=== PATIENT | female | born 1955 | race Caucasian/White ===

== ENCOUNTER 2019-10-14 22:46 | Emergency (ER) | payer MEDICARE, OTHER ==
[~2019-10-14] VITALS: Ht 157.5 cm; Wt 68.0 kg
== END 2019-10-15 02:06 | disposition home or self-care (01) ==
LOC: ER 22:46
DX: S42.352A Displaced comminuted fracture of shaft of humerus, left arm, initial encounter for closed fracture (principal); S32.019A Unspecified fracture of first lumbar vertebra, initial encounter for closed fracture; Z88.0 Allergy status to penicillin; W06.XXXA Fall from bed, initial encounter
CPT/HCPCS: 72100; 73030; J1170

== ENCOUNTER 2020-08-10 17:39 | Emergency (ER) | payer MEDICARE, OTHER ==
[~2020-08-10] VITALS: Ht 162.6 cm; Wt 63.5 kg
[2020-08-10 18:15] LABS: BASOPHILS ABSOLUTE AUTO 0.04 K/mm3 (0.00-0.23); BASOPHILS PERCENT AUTO 0 % (0-2); EOSINOPHILS ABSOLUTE AUTO 0.15 K/mm3 (0.00-0.68); EOSINOPHILS PERCENT AUTO 1 % (0-6); Hematocrit 39.3 % (33.0-51.0); Hemoglobin 12.4 g/dL (11.5-16.0); IMMATURE GRAN ABSOLUTE AUTO 0.06 K/mm3 (0.00-0.10); IMMATURE GRAN PERCENT AUTO 0 % (0-1); LYMPHOCYTES ABSOLUTE AUTO 1.44 K/mm3 (0.84-5.20); LYMPHOCYTES PERCENT AUTO 10 % (21-46); MONOCYTES ABSOLUTE AUTO 0.84 K/mm3 (0.16-1.47); MONOCYTES PERCENT AUTO 6 % (4-13); Mean Corpuscular HGB 29.7 pg (26.0-34.0); Mean Corpuscular HGB Conc 31.6 g/dL (31.5-36.5); Mean Corpuscular Volume 94 fL (80-100); NEUTROPHILS ABSOLUTE AUTO 11.34 K/mm3 (1.96-9.15); NEUTROPHILS PERCENT AUTO 82 % (41-73); Platelet Count 273 K/mm3 (150-400); RDW Coefficient Variation 12.3 % (11.7-14.2); RDW Standard Deviation 42.7 fL (35.1-46.3); Red Blood Cell Count 4.18 M/mm3 (3.80-5.20); White Blood Cell Count 13.87 K/mm3 (4.00-11.30)
[2020-08-10 18:53] LABS: Albumin, Blood 2.6 g/dL (3.4-5.0); Albumin/Globulin Ratio 0.5 (0.8-1.8); Bilirubin, Total 3.1 mg/dL (0.1-1.0); Bun/Creatinine Ratio 19.6 (12.0-20.0); Calcium, Blood 9.1 mg/dL (8.5-10.1); Creatinine, Blood 1.07 mg/dL (0.40-1.00); Globulin, Blood 5.1 g/dL (2.2-4.0); Potassium, Blood 3.7 mmol/L (3.5-5.5); Total Protein, Blood 7.7 g/dL (6.4-8.2)
[2020-08-10] MEDS ORDERED: ESZO3 PO (19:47)
[2020-08-10] MEDS ORDERED: PREG150 PO (19:47)
[2020-08-10] MEDS ORDERED: CITA20 PO (19:47)
[2020-08-10] MEDS ORDERED: DULO30 PO (19:47)
[2020-08-10] MEDS ORDERED: AMLO5 PO (19:47)
[2020-08-10] MEDS ORDERED: TIZA4 PO (19:48)
[2020-08-10] MEDS ORDERED: LINZESS145 MCG PO (19:48)
[2020-08-10] MEDS ORDERED: OXYC10TA19 PO (19:50)
[2020-08-10] MEDS ORDERED: BUPRENORPHINE1 EAC6 TOP (19:53)
[2020-08-10 21:50] LABS: Source, Urine Clean Catch
[2020-08-10 21:56] LABS: Blood, Urine Neg (Neg); Glucose Qualitative, Urine Neg (Neg); Ketones, Urine Neg (Neg); Leukocyte Esterase, Urine 1+ (Neg); Nitrite, Urine Neg (Neg); Protein, Urine 2+ (Neg); Urobilinogen, Urine 3+ (Normal)
[2020-08-10 22:03] LABS: Appearance, Urine Hazy (Clear); Bilirubin, Urine 1+ (Neg); Color, Urine Yellow (P-Yellow); Red Blood Cells, Urine Not Seen /hpf (0-2); White Blood Cells, Urine 50-100 /hpf (0-5)
[2020-08-10 22:04] LABS: Bacteria Mod /hpf; Squamous Epithelial Cells Mod /hpf (Few)
== END 2020-08-10 23:30 | disposition short-term general hospital (02) ==
LOC: ER 17:39
PROVIDERS: Physician Assistant
DX: K80.10 Calculus of gallbladder with chronic cholecystitis without obstruction (principal); K85.10 Biliary acute pancreatitis without necrosis or infection; Z88.0 Allergy status to penicillin; Z79.899 Other long term (current) drug therapy
CPT/HCPCS: 36415; 74018; 74177; 76705; 80053; 81001; 83690; 85025; 87086; 96365-59; 96375; 99285-25; J0696; J0744; J1200; J2405; J3010; J7030; Q9967

== ENCOUNTER 2021-12-13 11:13 | Day surgery (SDC) | payer MEDICARE, OTHER ==
[~2021-12-13] VITALS: Ht 157.5 cm; Wt 145.0 kg
[~2021-12-13 11:13] MED LIST: AMLO5 PO; BUPR100ER PO; BUPRENORPHINE1 EAC6 TOP; CITA20 PO; CRUTCH2 XX; DULO30 PO; ESZO2 PO; ESZO3 PO; HYDR1TAB94 PO; LINZESS145 MCG PO; MYRBETRIQ25 MG PO; OXYC10TA19 PO; OXYMORPHONE HCL10 MG PO; PREG150 PO; PSEUDOEPHEDRINE30 M1 PO; Prinivil10 MG PO; TIZA4 PO; Zanaflex2 M1 PO
[2021-12-13] MEDS ORDERED: PREG25 (11:58)
[2021-12-13] MEDS ORDERED: Aspir 8181 MG (12:00)
== END 2021-12-13 15:10 | disposition home or self-care (01) ==
LOC: ORSCSDS 11:13
PROVIDERS: Podiatrist Foot & Ankle Surgery
PROC: 0QSH04Z Reposition Left Tibia with Internal Fixation Device, Open Approach (ICD-10-PCS; principal; 2021-12-13 12:30)
DX: S82.872A Displaced pilon fracture of left tibia, initial encounter for closed fracture (principal); I10 Essential (primary) hypertension; F41.8 Other specified anxiety disorders; Z87.891 Personal history of nicotine dependence; Z79.899 Other long term (current) drug therapy
CPT/HCPCS: A9270; C1713; J0171; J1100; J1885; J2250; J2405; J2704; J3010; J3370; J7050; J7120

== ENCOUNTER 2024-03-06 12:16 | Inpatient (IN) | payer MEDICARE, OTHER ==
[~2024-03-06] VITALS: Ht 167.6 cm; Wt 54.6 kg
[2024-03-06] VITALS (15 sets, daily range): BP systolic 141–193; BP diastolic 63–84
[~2024-03-06 12:16] MED LIST changes: +Aspir 8181 MG; +CITALOPRAM HBR10 MG; +KLOR-CON 1010 ME9 PO; +METO25ER PO; +PREG25 PO
[2024-03-06 12:57] LABS: BASOPHILS ABSOLUTE AUTO 0.05 K/mm3 (0.00-0.23); BASOPHILS PERCENT AUTO 1 % (0-2); EOSINOPHILS ABSOLUTE AUTO 0.06 K/mm3 (0.00-0.68); EOSINOPHILS PERCENT AUTO 1 % (0-6); Hematocrit 33.1 % (33.0-51.0); IMMATURE GRAN ABSOLUTE AUTO 0.02 K/mm3 (0.00-0.10); IMMATURE GRAN PERCENT AUTO 0 % (0-1); LYMPHOCYTES ABSOLUTE AUTO 1.34 K/mm3 (0.84-5.20); LYMPHOCYTES PERCENT AUTO 14 % (21-46); MONOCYTES ABSOLUTE AUTO 0.61 K/mm3 (0.16-1.47); MONOCYTES PERCENT AUTO 7 % (4-13); Mean Corpuscular HGB 29.6 pg (26.0-34.0); Mean Corpuscular HGB Conc 33.2 g/dL (31.5-36.5); Mean Corpuscular Volume 89 fL (80-100); Mean Platelet Volume 11.9 fL (9.1-12.4); NEUTROPHILS ABSOLUTE AUTO 7.33 K/mm3 (1.96-9.15); NEUTROPHILS PERCENT AUTO 78 % (41-73); Platelet Count 215 K/mm3 (150-400); RDW Coefficient Variation 13.1 % (11.7-14.2); RDW Standard Deviation 42.8 fL (35.1-46.3); Red Blood Cell Count 3.71 M/mm3 (3.80-5.20); White Blood Cell Count 9.41 K/mm3 (4.00-11.30)
[2024-03-06 13:22] LABS: Alanine Aminotransfer (ALT/SGP 41 U/L (12-78); Albumin, Blood 3.1 g/dL (3.4-5.0); Albumin/Globulin Ratio 0.8 (0.8-1.8); Alk Phos 73 U/L (50-136); Anion Gap 11 mmol/L (3-11); Aspartate Aminotrans (AST/SGOT 48 U/L (12-37); Bilirubin, Total 0.7 mg/dL (0.1-1.0); Blood Urea Nitrogen 18 mg/dL (8-24); Bun/Creatinine Ratio 19.4 (12.0-20.0); CO2, Blood 23 mmol/L (21-32); Calcium, Blood 8.5 mg/dL (8.5-10.1); Chloride, Blood 113 mmol/L (98-108); Creatinine, Blood 0.93 mg/dL (0.40-1.00); Ethanol (Alcohol), Blood, Med <3 mg/dL; Globulin, Blood 3.8 g/dL (2.2-4.0); Glomerular Filtration Rate 67 (60-); Glucose, Blood 128 mg/dL (70-99); Potassium, Blood 4.8 mmol/L (3.5-5.5); Sodium, Blood 142 mmol/L (136-145); Total Protein, Blood 6.9 g/dL (6.4-8.2)
[2024-03-06 14:09] LABS: Source, Urine Foley catheter
[2024-03-06 14:17] LABS: Appearance, Urine Clear (Clear); Bilirubin, Urine Neg (Neg); Blood, Urine Neg (Neg); Color, Urine Yellow (P-Yellow); Glucose Qualitative, Urine Neg (Neg); Ketones, Urine 3+ (Neg); Leukocyte Esterase, Urine Neg (Neg); Nitrite, Urine Neg (Neg); Protein, Urine 1+ (Neg); Urobilinogen, Urine NORM (Normal)
[2024-03-06 14:29] LABS: U Amphetamine Screen Not Detected; U Barbituate Screen Not Detected; U Benzodiazapine Screen Not Detected; U Buprenorphine Screen Not Detected; U Cannabinoids Screen Not Detected; U Cocaine Screen Not Detected; U Methadone Screen Not Detected; U Methamphetamine Screen Not Detected; U Opiates Screen Not Detected; U Oxycodone Screen Not Detected; U Phencyclidine Screen Not Detected
[2024-03-06] MEDS ORDERED: BUPRENORPHINE HC2 MG SL (14:36)
[2024-03-06] MEDS ORDERED: NiCARdipine HCL 50 MG in NS 250 ML IV SCH (14:40)
[2024-03-06] MEDS ORDERED: Ondansetron 4 MG TAB PO PRN (15:35)
[2024-03-06] MEDS ORDERED: Zolpidem Tartrate 5 MG Tab PO PRN (15:35)
[2024-03-06] MEDS ORDERED: Acetaminophen 650 MG Supp PR PRN (15:35)
[2024-03-06] MEDS ORDERED: Acetaminophen 325 MG TABLET PO PRN (15:40)
[2024-03-06] MEDS ORDERED: Magnesium Hydroxide Conc 10 ML UDC PO PRN (15:40)
[2024-03-06] MEDS ORDERED: Famotidine 20 MG Tab PO SCH (21:00)
[2024-03-06] MEDS ORDERED: buprenorphine HCL 2 MG TAB.SUBL SL SCH (21:00)
[2024-03-06] MEDS ORDERED: Pregabalin 75 MG Cap PO SCH (21:00)
[2024-03-06] MEDS ORDERED: Lactobacil 2-S.Thermo-Bifido 1 1 Cap PO SCH (21:00)
--- NOTE | 2024-03-06 22:00 | NUR ---
ASSUMED CARE PT ARRIVED FROM ED AT 1930. PT A/O TO SELF, ABLE TO FOLLOW SIMPLE COMMANDS. UNABLE TO STATE OR WHAT YEAR IT IS. MOVIE EXTRA EQUAL IN BILATERAL HANDS, ABLE TO MOVE BLE. PT'S DAUGHTER, MACHO, AT BEDSIDE. PUPILS EQUAL AND REACTIVE TO LIGHT. PT ON RA, O2 SATS > 90%. CARDIAC MONITORING REFLECTS NSR, HR 80s. NICARDIPINE GTT INFUSING, SEE FLOWSHEET. GOAL FOR SBP 170s-180s. PIV x2. PO TOLERATING PO FLUIDS FOR MEDICATION ADMIN. BED ALARM ON, BED IN LOWEST POSITION.
[2024-03-07] VITALS (45 sets, daily range): BP systolic 122–178; BP diastolic 46–100
[2024-03-07 03:45] LABS: BASOPHILS ABSOLUTE AUTO 0.07 K/mm3 (0.00-0.23); BASOPHILS PERCENT AUTO 1 % (0-2); EOSINOPHILS ABSOLUTE AUTO 0.17 K/mm3 (0.00-0.68); EOSINOPHILS PERCENT AUTO 2 % (0-6); Hematocrit 34.6 % (33.0-51.0); Hemoglobin 11.1 g/dL (11.5-16.0); IMMATURE GRAN ABSOLUTE AUTO 0.02 K/mm3 (0.00-0.10); IMMATURE GRAN PERCENT AUTO 0 % (0-1); LYMPHOCYTES ABSOLUTE AUTO 3.26 K/mm3 (0.84-5.20); LYMPHOCYTES PERCENT AUTO 33 % (21-46); MONOCYTES ABSOLUTE AUTO 0.94 K/mm3 (0.16-1.47); MONOCYTES PERCENT AUTO 10 % (4-13); Mean Corpuscular HGB Conc 32.1 g/dL (31.5-36.5); Mean Corpuscular Volume 90 fL (80-100); Mean Platelet Volume 11.8 fL (9.1-12.4); NEUTROPHILS ABSOLUTE AUTO 5.32 K/mm3 (1.96-9.15); NEUTROPHILS PERCENT AUTO 55 % (41-73); Platelet Count 301 K/mm3 (150-400); RDW Coefficient Variation 13.2 % (11.7-14.2); RDW Standard Deviation 43.5 fL (35.1-46.3); Red Blood Cell Count 3.83 M/mm3 (3.80-5.20); White Blood Cell Count 9.78 K/mm3 (4.00-11.30)
[2024-03-07 03:57] LABS: Albumin, Blood 3.4 g/dL (3.4-5.0); Albumin/Globulin Ratio 0.9 (0.8-1.8); Bilirubin, Total 0.5 mg/dL (0.1-1.0); Bun/Creatinine Ratio 16.7 (12.0-20.0); Calcium, Blood 8.9 mg/dL (8.5-10.1); Creatinine, Blood 1.14 mg/dL (0.40-1.00); Globulin, Blood 3.8 g/dL (2.2-4.0); Magnesium, Blood 1.7 mg/dL (1.6-2.4); Potassium, Blood 4.5 mmol/L (3.5-5.5); Total Protein, Blood 7.2 g/dL (6.4-8.2)
--- NOTE | 2024-03-07 05:15 | NUR ---
SHIFT SUMMARY PT'S MENTATION IMPROVED THROUGHOUT SHIFT AND IS NOW A/O X4. PT IS AT TIMES SLOW TO RESPOND BUT WILL ANSWER QUESTIONS CORRECTLY. PT STILL ABLE TO FOLLOW COMMANDS. ABLE TO STAND AND PIVOT TO BSC WITH 1 NURSE ASSIST. PT REMAINS ON RA, O2 SATS > 90%. CARDIAC MONITORING REFLECTS NSR, HR 60s. NICARDIPINE GTT ON SB, SEE FLOWSHEET. SBP 160s AT THIS TIME. PIV TO REX AND R HAND SL.
--- NOTE | 2024-03-07 07:58 | NUR ---
ASSUMED CARE BEDSIDE REPORT FROM DANIELA MARTE AT 0700. PT RESTING IN BED. A&OX 4. FOLLOWS COMMANDS. ABLE TO MAKE NEEDS KNOWN, OCCASIONALLY SLOW TO RESPOND BUT ANSWERS QUESTIONS APPROPRIATELY. STATES SHE IS FEELING MUCH BETTER. MAEW, TREE KILLER EQUAL. LUNGS CLEAR. SR, RATE 70'S. SBP 160-170'S. NICARDIPINE ON STANDBY, PO HTN MEDS GIVEN. ABD ROUND, SOFT, NON TENDER, BT X 4. TOLERATING PO WELL. CALL LIGHT IN REACH. WILL CONTINUE PLAN OF CARE.
[2024-03-07] MEDS ORDERED: Enoxaparin 40 MG/0.4 ML SYR SC SCH (09:00)
[2024-03-07] MEDS ORDERED: Metoprolol Succinate 25 MG TABCR PO SCH (09:00)
[2024-03-07] MEDS ORDERED: Lisinopril 20 MG Tab PO SCH (09:00)
[2024-03-07] MEDS ORDERED: LISI20 PO (14:59)
--- NOTE | 2024-03-07 18:37 | NUR ---
DISCHARGE D/C INSTRUCTIONS GIVEN AT 1530. QUESTIONS ANSWERED. PT TO MAKE APPT c PCP WITHIN ONE WEEK. IVS REMOVED AND DRESSINGS PLACED. PT WAITED IN ROOM FOR DAUGHTER TO SSIS ARCHITECT. OTFinn MCCARTY.
== END 2024-03-07 18:27 | disposition home or self-care (01) | DRG 305 ==
LOC: ER 12:16 → ICUE 17:10
PROVIDERS: Emergency Medicine; ADMIT Hospitalist
DX: I16.1 Hypertensive emergency (principal); I67.4 Hypertensive encephalopathy; I50.32 Chronic diastolic (congestive) heart failure; G89.29 Other chronic pain; I11.0 Hypertensive heart disease with heart failure; F32.9 Major depressive disorder, single episode, unspecified; R29.6 Repeated falls; I25.2 Old myocardial infarction; Z88.0 Allergy status to penicillin; Z88.1 Allergy status to other antibiotic agents; Z79.899 Other long term (current) drug therapy; Z79.82 Long term (current) use of aspirin; Z98.890 Other specified postprocedural states; Z90.49 Acquired absence of other specified parts of digestive tract
CPT/HCPCS: 36415; 70450; 70496; 70498; 71045; 80053; 83735; 85025; 93005; 93010; 96365-59; 96366-59; 99291-25; A9270; J1650; J7050; Q9967

== ENCOUNTER 2024-04-27 18:35 | Inpatient (IN) | payer MEDICARE, OTHER ==
[~2024-04-27] VITALS: Ht 157.5 cm; Wt 53.7 kg
[~2024-04-27 18:35] MED LIST changes: +BUPRENORPHINE HC2 MG SL; +LISI20 PO
[2024-04-27 18:57] LABS: BASOPHILS ABSOLUTE AUTO 0.07 K/mm3 (0.00-0.23); BASOPHILS PERCENT AUTO 1 % (0-2); EOSINOPHILS ABSOLUTE AUTO 0.52 K/mm3 (0.00-0.68); EOSINOPHILS PERCENT AUTO 4 % (0-6); Hematocrit 30.7 % (33.0-51.0); Hemoglobin 9.5 g/dL (11.5-16.0); IMMATURE GRAN ABSOLUTE AUTO 0.03 K/mm3 (0.00-0.10); IMMATURE GRAN PERCENT AUTO 0 % (0-1); LYMPHOCYTES ABSOLUTE AUTO 2.28 K/mm3 (0.84-5.20); LYMPHOCYTES PERCENT AUTO 18 % (21-46); MONOCYTES PERCENT AUTO 8 % (4-13); Mean Corpuscular HGB Conc 30.9 g/dL (31.5-36.5); Mean Corpuscular Volume 91 fL (80-100); Mean Platelet Volume 12.9 fL (9.1-12.4); NEUTROPHILS ABSOLUTE AUTO 8.75 K/mm3 (1.96-9.15); NEUTROPHILS PERCENT AUTO 69 % (41-73); Platelet Count 147 K/mm3 (150-400); RDW Coefficient Variation 15.1 % (11.7-14.2); RDW Standard Deviation 49.9 fL (35.1-46.3); Red Blood Cell Count 3.39 M/mm3 (3.80-5.20); White Blood Cell Count 12.65 K/mm3 (4.00-11.30)
[2024-04-27] MEDS ORDERED: Albuterol HFA200 ACT/6.7 GM INH INH ONE (19:35)
[2024-04-27 19:42] LABS: Albumin, Blood 3.1 g/dL (3.4-5.0); Albumin/Globulin Ratio 0.8 (0.8-1.8); Bilirubin, Total 0.4 mg/dL (0.1-1.0); Bun/Creatinine Ratio 18.1 (12.0-20.0); Creatinine, Blood 2.6 mg/dL (0.40-1.00); Globulin, Blood 3.7 g/dL (2.2-4.0); Potassium, Blood 6.1 mmol/L (3.5-5.5); Total Protein, Blood 6.8 g/dL (6.4-8.2)
[2024-04-27 19:42] LABS: Source, Urine Clean Catch
[2024-04-27 19:45] LABS: Appearance, Urine Hazy (Clear); Bilirubin, Urine Neg (Neg); Blood, Urine Neg (Neg); Color, Urine Yellow (P-Yellow); Glucose Qualitative, Urine Neg (Neg); Ketones, Urine Neg (Neg); Leukocyte Esterase, Urine 1+ (Neg); Nitrite, Urine Neg (Neg); Protein, Urine 1+ (Neg); Specific Gravity, Urine 1.015 (1.003-1.022); Urobilinogen, Urine NORM (Normal)
[2024-04-27] MEDS ORDERED: NS 1,000 ML IV SCH ×2 (19:45→21:20)
[2024-04-27 19:51] LABS: Influenza A, PCR NEGATIVE (NEGATIVE); Influenza B, PCR NEGATIVE (NEGATIVE); Resp Syncytial Virus, PCR NEGATIVE (NEGATIVE); SARS-Cov-2 (COVID-19) PCR, MMC NEGATIVE (NEGATIVE)
[2024-04-27 19:54] LABS: Red Blood Cells, Urine 0-2 /hpf (0-2); Squamous Epithelial Cells Few /hpf (Few)
[2024-04-27 19:55] LABS: Bacteria Mod /hpf
[2024-04-27] MEDS ORDERED: Dextrose 50% 50 ML Vial IV ONE (21:20)
[2024-04-27] MEDS ORDERED: Celexa20 MG PO (21:39)
[2024-04-27] MEDS ORDERED: METO50ER PO (21:40)
[2024-04-27] MEDS ORDERED: Insulin Regular 100 Unit/ML 1ML Dose IV ONE (21:40)
[2024-04-27] MEDS ORDERED: POTCHL20ER PO (21:41)
[2024-04-27 21:43] LABS: Base Excess Venous -10.9 mmol/L; Bicarbonate Venous 16.5 mmol/L (24.0-30.0); PCO2 Venous 33.8 mmHg (38-42); pH Blood Venous 7.28 (7.34-7.37)
[2024-04-27] MEDS ORDERED: Insulin Glargine-Yfgn 100 Unit/mL 3 ML SYR SC ONE (22:00)
[2024-04-27 22:44] VITALS: BP 131/106
[2024-04-28] VITALS (11 sets, daily range): BP systolic 159–215; BP diastolic 60–122
[2024-04-28] MEDS ORDERED: HydrALAZINE HCl 20 MG / ML 1ML Vial IV PRN ×2 (07:40→11:55)
[2024-04-28] MEDS ORDERED: Enoxaparin 30 MG/0.3 ML SYR SC SCH (09:00)
[2024-04-28 09:31] LABS: Hematocrit 36.2 % (33.0-51.0); Hemoglobin 11.3 g/dL (11.5-16.0); Mean Corpuscular HGB Conc 31.2 g/dL (31.5-36.5); Mean Corpuscular Volume 90 fL (80-100); Platelet Count 182 K/mm3 (150-400); RDW Coefficient Variation 14.8 % (11.7-14.2); RDW Standard Deviation 49.1 fL (35.1-46.3); Red Blood Cell Count 4.03 M/mm3 (3.80-5.20); White Blood Cell Count 17.93 K/mm3 (4.00-11.30)
[2024-04-28 09:52] LABS: Bun/Creatinine Ratio 17.5 (12.0-20.0); Calcium, Blood 9.1 mg/dL (8.5-10.1); Creatinine, Blood 2.17 mg/dL (0.40-1.00); Potassium, Blood 6.7 mmol/L (3.5-5.5)
[2024-04-28] MEDS ORDERED: Sodium Bicarb 8.4% 1 MEQ/ML 50 ML Vial IV ONE (10:20)
[2024-04-28] MEDS ORDERED: NS 1,000 ML IV SCH (10:20)
[2024-04-28] MEDS ORDERED: Furosemide 10 MG / ML 2ML Vial IV ONE (11:00)
[2024-04-28] MEDS ORDERED: HydrALAZINE HCl 20 MG / ML 1ML Vial IV ONE (11:30)
[2024-04-28] MEDS ORDERED: Ondansetron HCl 2 MG / ML 2ML Vial IV PRN (11:35)
[2024-04-28] MEDS ORDERED: CloNIDine HCL 0.1 MG Patch TOP SCH (12:00)
[2024-04-28 14:39] LABS: Bun/Creatinine Ratio 18.6 (12.0-20.0); Creatinine, Blood 2.2 mg/dL (0.40-1.00); Potassium, Blood 6.3 mmol/L (3.5-5.5)
[2024-04-28] MEDS ORDERED: LISINOPRIL-HCT1 EAC1 PO (15:31)
[2024-04-28] MEDS ORDERED: TIZA4 PO (15:31)
--- NOTE | 2024-04-28 17:23 | NUR ---
PATIENT REMAINS ALTERED, ORIENTED TO NONE. B/P ELEVATED THROUGHOUT THE SHIFT. IV HYDRALAZINE GIVEN X3 AND CLONIDINE PATCH PLACED. PATIENT AWAKE THROUGHOUT THE DAY, BUT DROWSY. CURRENTLY NPO DUE TO ASPIRATION RISK. POTASSIUM CRITICALLY HIGH, LAST DRAW WAS 6.3, DR PIERRE NOTIFIED. SR IN THE 90'S ON TELEMETRY. INCONTINENT OF BOWEL/BLADDER, PUREWICK IN PLACE. NS INFUSING AT 100ML/HR. PER REPORT BUTTOCKS IS EXCORIATED, FOAM DRESSING IN PLACE AND REMAINS C/D/I. TURNED Q2 HOURS THIS SHIFT, PATIENT UNABLE TO FOLLOW COMMANDS.
[2024-04-28 20:00] LABS: Bun/Creatinine Ratio 17.9 (12.0-20.0); Creatinine, Blood 2.29 mg/dL (0.40-1.00)
[2024-04-28] MEDS ORDERED: FentaNYL Citrate 50 MCG/ML 2 ML Injection IV PRN (22:25)
--- NOTE | 2024-04-28 23:44 | NUR ---
2157 PT BLOOD PRESSURE 208/86. PT GIVEN 20 MG HYDRALAZINE PER EMAR. BLOOD PRESSURE RECHECKED AT 2244 AND RESULT WAS 203/71. PT GIVEN PAIN MEDICATIONS PER EMAR AT 225. AT 2320 PT BLOOD PRESSURE 159/65.
[2024-04-29] VITALS (7 sets, daily range): BP systolic 144–202; BP diastolic 63–105
--- NOTE | 2024-04-29 04:17 | NUR ---
SHIFT SUMMARY PT MEDICATED PER EMAR FOR BLOOD PRESSURE AND PAIN DURING THIS SHIFT. PT BED IN LOW POSITION AND CALL LIGHT WITHIN REACH. PT DAUGHTER DID COME IN TO VISIT LAST NIGHT AND STS WILL BE BACK THIS AM BEFORE SHE GOES TO WORK.
[2024-04-29] MEDS ORDERED: FentaNYL 12 MCG/HR Patch TOP SCH (11:05)
[2024-04-29] MEDS ORDERED: Lidocaine 4% 1 Patch TOP SCH (11:39)
[2024-04-29 12:09] LABS: Source, Urine Foley catheter
[2024-04-29 12:14] LABS: Appearance, Urine Clear (Clear); Bilirubin, Urine Neg (Neg); Blood, Urine Neg (Neg); Color, Urine Yellow (P-Yellow); Glucose Qualitative, Urine Neg (Neg); Ketones, Urine Neg (Neg); Leukocyte Esterase, Urine Neg (Neg); Nitrite, Urine Neg (Neg); Protein, Urine Neg (Neg); Specific Gravity, Urine 1.015 (1.003-1.022); Urobilinogen, Urine NORM (Normal)
[2024-04-29] MEDS ORDERED: FentaNYL Citrate 50 MCG/ML 2 ML Injection IV SCH (16:00)
--- NOTE | 2024-04-29 18:36 | NUR ---
SHIFT SUMMARY PT REMAINS ALTERED MENTAL STATUS, A/OX0. BP MAINTAINS 140-170'S SYSTOLIC T/O THIS SHIFT. FENTANYL GIVEN ONCE THIS AM FOR PAIN. RENAL ULTRASOUND REVIEVED 1300 ML OF URINE IN THE BLADDER. PURWICK REMOVED AND DELUNA CATHETER PLACED. DELUNA DRAINING CLEAR, YELLOW URINE. PT REMAINS NPO D/T ALTERED MENTAL STATUS AND NS RUNNNIG CONTINUOUSLY @ 100 ML/HR. STAGE 2 PRESSURE SORE LOCATED ON THE COCCYX, DRESSING CHANGED THIS AM, SEE PICTURE IN RECORDS.
[2024-04-30] VITALS (10 sets, daily range): BP systolic 147–208; BP diastolic 67–102
[2024-04-30] MEDS ORDERED: HYDROmorphone HCl/Pf 1MG SYR IV PRN (04:40)
--- NOTE | 2024-04-30 05:09 | NUR ---
PT AM BP SYSTOLIC 208. 2O MG IV HYDRALAZINE GIVEN, WHEN RECHECKED AFTER REPOSITIONING AND CATH CARE, BP 197 SYSTOLIC HR 128 RR 28 VIEW SCORE 4. HOSPITALIST NOTIFIED OF PT TETHERED CORD SYNDROME AND CHRONIC BACK PAIN AND TOLD PT GETTING FENTANYL 25 MCG SCHEDULED Q8H. HOSPITALIST GAVE ORDER TO DC FENTANYL AND START PT ON IV DILAUDID 0.5-1 MG Q4P TO HELP RELIEVE PAIN AND TO LOWER BP, RR, HR. 1 MG GIVEN AND WILL RECHECK VS AFTER 30 MINUTES.
--- NOTE | 2024-04-30 05:45 | NUR ---
SHIFT SUMMARY NOC PT A/O X TO FAMILY. PLEASANT AND COOPERATIVE WITH CARE. BP ELEVATED IN AM 208/83 20 IV HYDRALAZINE GIVEN. ON RECHECK AFTER REPOSITIONING AND CHANGING PT BP 197/83 HR 128 RR 28. HOSPITALIST NOTIFIED OF PT PAIN HX AND FENTANYL D/C AND NEW ORDER FOR IV DILAUDID 0.5-1MG Q4H GIVEN. PT GIVEN 1MG DOSE, VS RECHECKED BP 154/74 HR 106 RR 24. ON TELE SINUS RHYTHM @ [address] FOR ACUTE RETENTION PATENT AND DRAINING TO GRAVITY. PT HAS BEEN NON VERBAL FOR ENTIRETY OF SHIFT. DAUGHTER CAME TO VISIT AND REPORTS PT HAS HAD MULTIPLE EPISODES OF AMS IN THE PAST. INFUSION OF NS @ 100 ML/HR RUNNING DUE TO NPO STATUS. PT CURRENTLY RESTING WITH BED ALARM ON, BED IN LOWEST POSITION, AND CALL LIGHT WITHIN REACH. PT POSTASSIUM 5.6, AWAITING AM LABS FOR IMPROVEMENT.
[2024-04-30 05:51] LABS: Hematocrit 30.3 % (33.0-51.0); Hemoglobin 9.5 g/dL (11.5-16.0); Mean Corpuscular HGB 28.3 pg (26.0-34.0); Mean Corpuscular HGB Conc 31.4 g/dL (31.5-36.5); Mean Corpuscular Volume 90 fL (80-100); Platelet Count 176 K/mm3 (150-400); RDW Coefficient Variation 16.4 % (11.7-14.2); RDW Standard Deviation 54.4 fL (35.1-46.3); Red Blood Cell Count 3.36 M/mm3 (3.80-5.20); White Blood Cell Count 12.95 K/mm3 (4.00-11.30)
[2024-04-30 06:31] LABS: Albumin, Blood 3.1 g/dL (3.4-5.0); Anion Gap 18 mmol/L (3-11); Blood Urea Nitrogen 39 mg/dL (8-24); Bun/Creatinine Ratio 22.9 (12.0-20.0); CO2, Blood 14 mmol/L (21-32); Calcium, Blood 9.1 mg/dL (8.5-10.1); Chloride, Blood 118 mmol/L (98-108); Glomerular Filtration Rate 32 (60-); Glucose, Blood 149 mg/dL (70-99); Magnesium, Blood 1.8 mg/dL (1.6-2.4); Phosphorus, Blood 4.4 mg/dL (2.5-4.9); Sodium, Blood 145 mmol/L (136-145)
--- NOTE | 2024-04-30 09:14 | NUR ---
0722 BP 185/86. MEDICATED WITH 20 MG IV PRN HYDRALAZINE PER OCT. BP DECREASED TO 147/67 AFTER RECHECK.
--- NOTE | 2024-04-30 16:59 | NUR ---
DOBHOFF PLACED TO 45 CM IN THE RIGHT NARE. AWAITING X-RAY TO CONFIRM PLACEMENT IN ORDER TO START FEEDINGS.
--- NOTE | 2024-04-30 17:50 | NUR ---
DOBHOFF ADVANCED 10 CM TO MEET PLACEMENT, TO 55 CM TOTAL. JEVITY 1.2 STARTED AT 10 ML/HR. SET TO FLUSH 30 ML EVERY 4 HOURS.
--- NOTE | 2024-04-30 17:54 | NUR ---
SHIFT SUMMARY PT ALERT AND ORIENTED TO PERSON. PT IS PLEASANT AND COOPERATIVE WITH CARE. PRN HYDRALAZINE GIVEN TWICE THROUGHOUT THE SHIFT. SPEECH THERAPY EVALUATED THE PT AND THE PT REMAINS NPO. DOBHOFF PLACED AT 55 CM IN ORDER TO START FEEDINGS. JEVITY 1.2 STARTED AT 10 ML/HR AND SET TO FLUSH 30 ML EVERY 4 HOURS. ON TELE RUNNING SINUS RHYTHM/SINUS TACHYCARDIA. DELUNA IN PLACE FOR ACUTE URINARY RETENTION, DRAINING TO GRAVITY, YELLOW URINE. PT CURRENTLY RESTING WITH BED ALARM ON AND THE BED IN THE LOWEST POSITION.
[2024-04-30] MEDS ORDERED: dilTIAZem HCL 30 MG TAB PT SCH (18:00)
[2024-04-30] MEDS ORDERED: Sodium Bicarbonate 650 MG Tab PT SCH (21:00)
[2024-04-30] MEDS ORDERED: Magnesium Sulf 2 GM/Water 50ML 50 ML IV ONE ×2 (22:55→23:00)
--- NOTE | 2024-04-30 22:56 | NUR ---
TELE CALLED 2226 16 BT RUN OF TORSADES, THEN BACK INTO THE PREVIOUS NSR. PT APPEARS ASYMPTOMATIC. SPOKE WITH DR SANDRA ORDERED MAG SULFATE. WILL LET PRIMARY RN KNOW
--- NOTE | 2024-04-30 23:01 | NUR ---
V TACH/ TORSADES WAS MADE AWARE THAT THIS PT LOOKED TO HAVE A RUN OF TORSADES; I SPOKE WITH DR. BAL WHO WANTED STAT LABS AND MAG 2 GM TO BE GIVEN. RN TAKING CARE OF PT WAS NOTIFIED.
[2024-04-30] MEDS ORDERED: Sodium Bicarb 8.4% 1 MEQ/ML 50 ML Vial IV STA (23:02)
[2024-04-30 23:45] LABS: Albumin, Blood 2.9 g/dL (3.4-5.0); Albumin/Globulin Ratio 0.7 (0.8-1.8); Bilirubin, Total 0.9 mg/dL (0.1-1.0); Bun/Creatinine Ratio 27.5 (12.0-20.0); Calcium, Blood 9.4 mg/dL (8.5-10.1); Creatinine, Blood 1.49 mg/dL (0.40-1.00); Globulin, Blood 4.2 g/dL (2.2-4.0); Magnesium, Blood 1.9 mg/dL (1.6-2.4); Potassium, Blood 4.4 mmol/L (3.5-5.5); Total Protein, Blood 7.1 g/dL (6.4-8.2)
[2024-05-01] VITALS (12 sets, daily range): BP systolic 134–193; BP diastolic 73–98
[2024-05-01] MEDS ORDERED: Labetalol HCL 5 MG/ML 4ML Injection (Single Dose) IV PRN (03:45)
[2024-05-01 06:09] LABS: Hematocrit 28.9 % (33.0-51.0); Hemoglobin 9.2 g/dL (11.5-16.0); Mean Corpuscular HGB Conc 31.8 g/dL (31.5-36.5); Mean Corpuscular Volume 88 fL (80-100); Mean Platelet Volume 12.5 fL (9.1-12.4); Platelet Count 183 K/mm3 (150-400); RDW Coefficient Variation 16.7 % (11.7-14.2); RDW Standard Deviation 54.1 fL (35.1-46.3); Red Blood Cell Count 3.28 M/mm3 (3.80-5.20); White Blood Cell Count 10.07 K/mm3 (4.00-11.30)
--- NOTE | 2024-05-01 06:27 | NUR ---
PT UNABLE TO COMMUNICATE NEEDS, WILL SOMETIMES RESPOND TO QUESTIONS WITH GRUNTS. PT HAD A 16 BEAT RUN OF TORSADES AT 1030PM, MD NOTIFIED - ORDERS PLACED AND FOLLOWED. PT HYPERTENSIVE, PRN HYDRALAZINE ADMINISTERED WITH MILD IMPROVEMENT. AROUND 3 AM PT WAS HYPERTENSIVE, TACHYPNEIC AND TACHYCARDIC >130 BPM, PRN PAIN MEDS AND HYDRALAZINE ADMINISTERED, MD NOTIFIED, LABETALOL ORDER ADDED AND ADMINISTERED WITH GREAT IMPROVEMENT TO VITALS - SEE CHART. PT REPOSITIONED THROUGHOUT SHIFT. SOFT WRIST RESTRAINTS CONTINUED D/T AMS AND DOBHOFF IN PLACE.
[2024-05-01 06:37] LABS: Albumin, Blood 2.8 g/dL (3.4-5.0); Anion Gap 10 mmol/L (3-11); Blood Urea Nitrogen 39 mg/dL (8-24); Bun/Creatinine Ratio 27.5 (12.0-20.0); CO2, Blood 22 mmol/L (21-32); Chloride, Blood 122 mmol/L (98-108); Creatinine, Blood 1.42 mg/dL (0.40-1.00); Glomerular Filtration Rate 40 (60-); Glucose, Blood 190 mg/dL (70-99); Magnesium, Blood 2.6 mg/dL (1.6-2.4); Phosphorus, Blood 3.1 mg/dL (2.5-4.9); Sodium, Blood 150 mmol/L (136-145)
[2024-05-01] MEDS ORDERED: Metoprolol Tartrate 25 MG Tab PT SCH ×2 (09:00→21:00)
--- NOTE | 2024-05-01 11:30 | NUR ---
PT'S DAUGHTER SILAS REMOVED PT'S [place] RING AND STATED SHE PUT IT IN HER PURSE TO TAKE HOME. SHE STATES THAT SHE NOTIFIED HER OTHER SISTER MACHO WHO AGREES TO HER TAKING THE [place] RING HOME.
[2024-05-01] MEDS ORDERED: HydrALAZINE HCl 20 MG / ML 1ML Vial IV PRN (12:25)
[2024-05-01] MEDS ORDERED: Citalopram Hydrobromide 10 MG TAB PT SCH (13:00)
[2024-05-01] MEDS ORDERED: Aspirin 81 MG Chew PT SCH (13:00)
[2024-05-01] MEDS ORDERED: Furosemide 10 MG / ML 2ML Vial IV ONE (14:00)
--- NOTE | 2024-05-01 16:35 | NUR ---
PER DR PIERRE, DOBHOFF NEEDED TO BE ADVANCED. PER IMAGING TIP WAS LOCATED AT THE GASTROESOPHAGEAL JUNCTION. THIS NURSE AND IHSAN SHARMA ADVANCED DOBHOFF TO THE MARKING OF 60 CM. NAGSOGASTRIC STATLOCK REPLACED. AWAITING X-RAY VERIFICATION AT THIS TIME.
[2024-05-01] MEDS ORDERED: Lactulose 20 GM/30 ML UDC PT SCH (17:00)
[2024-05-01] MEDS ORDERED: CefTRIAXone Sodium 1,000 MG in NS 100 ML IV SCH (17:00)
[2024-05-01] MEDS ORDERED: NS 250 ML IV PRN (17:35)
--- NOTE | 2024-05-01 17:59 | NUR ---
SHIFT SUMMARY: PATIENT IS NOVERBAL. RESPONDS WITH GRUNTS OCCASSIONALLY. ADVANCED NG TUBE TO 60 CM WITH SHARON MARTE PER DR. PIERRE. X-RAY COMPLETED, AWAITING PLACEMENT CONFIRMATION. TUBE FEEDING HELD UNTIL PLACEMENT CONFIRMED. PATIENT HAVING WORSENING HTN, TREATED PER EMAR. PATIENT GROANING AND WINCING WITH PAIN, TREATED WITH DILAUDID 1MG AT 1708. CALL FROM TELE AT 1811 WITH 5 BEAT RUN OF SVT, DR. PIERRE NOTIFIED. BED IN LOW POSITION AND CALL LIGHT WITHIN REACH. BED ALARM ON. PATIENT REPOSITIONED Q2H AND PRN. DELUNA PATENT AND DRAINING.
[2024-05-02] VITALS (8 sets, daily range): BP systolic 157–188; BP diastolic 74–97
[2024-05-02 05:51] LABS: Hematocrit 31.1 % (33.0-51.0); Hemoglobin 9.6 g/dL (11.5-16.0); Mean Corpuscular HGB 27.7 pg (26.0-34.0); Mean Corpuscular HGB Conc 30.9 g/dL (31.5-36.5); Mean Corpuscular Volume 90 fL (80-100); Mean Platelet Volume 12.2 fL (9.1-12.4); Platelet Count 202 K/mm3 (150-400); RDW Coefficient Variation 16.9 % (11.7-14.2); RDW Standard Deviation 55.4 fL (35.1-46.3); Red Blood Cell Count 3.47 M/mm3 (3.80-5.20); White Blood Cell Count 13.67 K/mm3 (4.00-11.30)
[2024-05-02 06:10] LABS: Albumin, Blood 2.7 g/dL (3.4-5.0); Anion Gap 9 mmol/L (3-11); Blood Urea Nitrogen 38 mg/dL (8-24); Bun/Creatinine Ratio 26.6 (12.0-20.0); CO2, Blood 25 mmol/L (21-32); Chloride, Blood 125 mmol/L (98-108); Creatinine, Blood 1.43 mg/dL (0.40-1.00); Glomerular Filtration Rate 40 (60-); Glucose, Blood 177 mg/dL (70-99); Magnesium, Blood 2.1 mg/dL (1.6-2.4); Phosphorus, Blood 2.6 mg/dL (2.5-4.9); Potassium, Blood 3.4 mmol/L (3.5-5.5); Sodium, Blood 156 mmol/L (136-145)
--- NOTE | 2024-05-02 06:10 | NUR ---
RENETTA PLACEMENT CONFIRMED, TUBE FEEDING RESUMED - RATE INCREASED TO GOAL RATE OF 40ML/HR DURING SHIFT, PT TOLERATING WITH NO SIGNS OF N/V. BOWEL CARE MED ADMINISTERED, PT HAD TWO LOOSE STOOLS. REPOSITIONED THROUGHOUT SHIFT. BLOOD PRESSURE ELEVATED REQUIRING PRN HYDRALAZINE, PAIN MANAGED WITH PRN PAIN MEDS. PT CONTINUES AMS, NOT ABLE TO MAKE NEEDS KNOWN.
[2024-05-02] MEDS ORDERED: Potassium Chloride 20 MEQ/15 ML UDC PT ONE (08:25)
[2024-05-02] MEDS ORDERED: Metoprolol Tartrate 50 MG Tab PT SCH (09:00)
[2024-05-02] MEDS ORDERED: Enoxaparin 40 MG/0.4 ML SYR SC SCH (09:00)
[2024-05-02] MEDS ORDERED: Diphenoxylat/Atrop 2.5 / 0.025MG 1 Tab PT PRN (16:35)
--- NOTE | 2024-05-02 17:36 | NUR ---
SHIFT SUMMARY: PT ALERT BUT REMAINS NON-VERBAL. MEDICATED TWICE FOR A FACE SCALE 5/10 PAIN. FEEDING GOAL AT DESIRED RATE. WATER FLUSH INCREASED TO 60mL/HR PER DR. PIERRE PT IS HYPERNATREMIC. PT HAD SEVERAL LARGE LOOSE WATERY BM'S THIS SHIFT. SPOKE WITH DR. PIERRE REGARDING ANTI-DIARRHEAL. MEDICATION PROVIDED PER EMAR. PT REMAINS HYPERTENSIVE. HYDRALIZE PROVIDED PER EMAR. PHYSICAL THERAPY WILL ATTEMPT WITH PT TOMORROW. MEPILEX ON COCCYX FOR OPEN SORE. CALL LIGHT IN REACH. BED IN LOWEST POSITION.
[2024-05-03] VITALS (7 sets, daily range): BP systolic 161–191; BP diastolic 75–92
[2024-05-03 05:04] LABS: Hematocrit 33.1 % (33.0-51.0); Hemoglobin 9.9 g/dL (11.5-16.0); Mean Corpuscular HGB 27.7 pg (26.0-34.0); Mean Corpuscular HGB Conc 29.9 g/dL (31.5-36.5); Mean Corpuscular Volume 93 fL (80-100); Mean Platelet Volume 12.7 fL (9.1-12.4); Platelet Count 219 K/mm3 (150-400); RDW Coefficient Variation 16.9 % (11.7-14.2); RDW Standard Deviation 57.6 fL (35.1-46.3); Red Blood Cell Count 3.57 M/mm3 (3.80-5.20); White Blood Cell Count 15.46 K/mm3 (4.00-11.30)
[2024-05-03 05:28] LABS: Albumin, Blood 2.5 g/dL (3.4-5.0); Anion Gap 8 mmol/L (3-11); Blood Urea Nitrogen 36 mg/dL (8-24); Bun/Creatinine Ratio 25.5 (12.0-20.0); CO2, Blood 28 mmol/L (21-32); Calcium, Blood 9.3 mg/dL (8.5-10.1); Chloride, Blood 128 mmol/L (98-108); Creatinine, Blood 1.41 mg/dL (0.40-1.00); Glomerular Filtration Rate 40 (60-); Glucose, Blood 171 mg/dL (70-99); Phosphorus, Blood 3.2 mg/dL (2.5-4.9); Potassium, Blood 3.7 mmol/L (3.5-5.5); Sodium, Blood 160 mmol/L (136-145)
--- NOTE | 2024-05-03 06:05 | NUR ---
NO ACUTE CHANGES DURING SHIFT. CONTINUES BEING NONVERBAL, UNABLE TO FOLLOW COMMANDS, FLACCID BUT OCCASIONALLY IS ABLE TO MOVE RIGHT ARM. TUBE FEEDING CONTINUED. TELE IN PLACE SR 99 BPM. MITTS CONTINUED. PRN HYDRALAZINE AND PAIN MEDS REQUIRED, PT BECOMES RESTLESS AND BREATHING BECOMES MORE LABORED WHEN PAINFUL.
[2024-05-03] MEDS ORDERED: Dextrose 5% 1,000 ML IV SCH (11:00)
[2024-05-03] MEDS ORDERED: Metoprolol Tartrate 50 MG Tab PT SCH (18:00)
--- NOTE | 2024-05-03 18:09 | NUR ---
SHIFT SUMMARY: PT REMAINS NON-VERBAL BUT IS NOW ATTEMPTING TO MUMBLE WORDS. PT WOULD ANSWER QUESTIONS WITH "OKAY" AND "YES." SODIUM LEVEL OF 160 AND 158 THIS SHIFT. DEXTROSE 5% INFUSING @ 125/HR X2 BAGS. PT REMAINS TO HAVE HTN. MEDICATED PER EMAR WITH SCHEDULED AND PRN MEDICATION. FACE SCALE UP TO 7/10 THIS SHIFT. MEDICATED PER EMAR. ON 2L NC MAINTAINING SATS >90%. CONT BIOX IN PLACE. DOBHOFF NUTRITION INCREASED TO 60mL/HR WITH FLUIDS AT A RATE OF 100mL q4. NEW MEPILEX APPLIED TO SACRAL ULCER. Q2 TURNS COMPLETED CALL LIGHT IN REACH. BED IN LOWEST POSITION.
[2024-05-03] MEDS ORDERED: Banana Flakes/Tos 1 EA Powder Pack PT SCH (21:00)
--- NOTE | 2024-05-04 03:30 | NUR ---
Pt speaking softly, short sentences. Easily awakened. MD notified of NA level. MD notified of D5 completed. Orders received for am chemistry. Pt resting quietly ijnh bed with eyes closed. No distress noted. NG noted at 61mm. pt tolerating well. ng fastened to gown. no distress noted.
[2024-05-04 05:38] LABS: Hematocrit 34.3 % (33.0-51.0); Hemoglobin 10.1 g/dL (11.5-16.0); Mean Corpuscular HGB 27.4 pg (26.0-34.0); Mean Corpuscular HGB Conc 29.4 g/dL (31.5-36.5); Mean Corpuscular Volume 93 fL (80-100); Mean Platelet Volume 12.7 fL (9.1-12.4); Platelet Count 227 K/mm3 (150-400); RDW Coefficient Variation 16.6 % (11.7-14.2); RDW Standard Deviation 56.6 fL (35.1-46.3); Red Blood Cell Count 3.68 M/mm3 (3.80-5.20); White Blood Cell Count 15.77 K/mm3 (4.00-11.30)
[2024-05-04 06:05] LABS: Bun/Creatinine Ratio 27.2 (12.0-20.0); Creatinine, Blood 1.14 mg/dL (0.40-1.00); Potassium, Blood 3.9 mmol/L (3.5-5.5)
[2024-05-04 07:13] VITALS: BP 194/93
[2024-05-04] MEDS ORDERED: Dextrose 5% 1,000 ML IV SCH (08:45)
[2024-05-04] MEDS ORDERED: Ipratropium/Albuterol SulF 2.5-0.5MG/3 ML Amp INH SCH (11:00)
[2024-05-04 15:06] VITALS: BP 183/86
--- NOTE | 2024-05-04 17:55 | NUR ---
SHIFT SUMMARY: PT ORIENTED TO SELF AND LOCATION. PT ABLE TO SAY MORE TODAY THAN IN PREVIOUS SHIFTS. ST RE-EVALUATED PT THIS AM. PT ABLE TO SWALLOW BETTER BUT IS HAVING FURTHER RESPIRATORY ISSUES POST SWALLOWING; MD AWARE. BREATHING TREATMENT ORDERED THIS SHIFT. IV PAIN MEDICATION GIVEN TWICE. PT ABLE TO STATE THAT HER BACK IS IN PAIN. ROTATE Q2. PT HAD 2 MEDIUM STOOLS THIS SHIFT. BANATROL ORDERED AND GIVEN. PT REMAINS HYPERTENSIVE. PRN AND SCHEDULED MEDS GIVEN FOR HTN. CALL LIGHT IN REACH. BED IN LOWEST POSITION.
[2024-05-04] MEDS ORDERED: Furosemide 10 MG/ML 4ML Vial IV STA (18:23)
[2024-05-04 19:33] VITALS: BP 143/64
--- NOTE | 2024-05-04 23:39 | NUR ---
THIS BREAK NURSE/CHIEF WHARFINGER PUT IN TELEPHONE ORDER FROM [place], ON-CALL HOSPITALIST: "ZOFRAN 4MG IV ONCE". ORDER ENTERED TO [employer] (SEE EMAR.) X-RAY HOSIERY LOOPER AND RN LU BY THE BEDSIDE AND NOTIFIED. PT HAS EMESIS ON HER GOWN, ULISSES AGUSTIN BY THE BEDSIDE, CHANGING LINEN&CLEANING UP THE PT. ZAHCARY SCHROEDER HAS A LUNCH BREAK AT THE MOMENT.
[2024-05-04] MEDS ORDERED: Ondansetron HCl 2 MG / ML 2ML Vial IV ONE (23:40)
[2024-05-05 03:38] VITALS: BP 157/75
[2024-05-05 05:52] LABS: BASOPHILS ABSOLUTE AUTO 0.03 K/mm3 (0.00-0.23); BASOPHILS PERCENT AUTO 0 % (0-2); EOSINOPHILS ABSOLUTE AUTO 0.86 K/mm3 (0.00-0.68); EOSINOPHILS PERCENT AUTO 6 % (0-6); Hematocrit 34.1 % (33.0-51.0); Hemoglobin 10.4 g/dL (11.5-16.0); IMMATURE GRAN ABSOLUTE AUTO 0.08 K/mm3 (0.00-0.10); IMMATURE GRAN PERCENT AUTO 1 % (0-1); LYMPHOCYTES ABSOLUTE AUTO 1.29 K/mm3 (0.84-5.20); LYMPHOCYTES PERCENT AUTO 8 % (21-46); MONOCYTES ABSOLUTE AUTO 0.67 K/mm3 (0.16-1.47); MONOCYTES PERCENT AUTO 4 % (4-13); Mean Corpuscular HGB 27.8 pg (26.0-34.0); Mean Corpuscular HGB Conc 30.5 g/dL (31.5-36.5); Mean Corpuscular Volume 91 fL (80-100); Mean Platelet Volume 12.9 fL (9.1-12.4); NEUTROPHILS ABSOLUTE AUTO 12.73 K/mm3 (1.96-9.15); NEUTROPHILS PERCENT AUTO 81 % (41-73); Platelet Count 206 K/mm3 (150-400); RDW Coefficient Variation 15.4 % (11.7-14.2); RDW Standard Deviation 51.7 fL (35.1-46.3); Red Blood Cell Count 3.74 M/mm3 (3.80-5.20); White Blood Cell Count 15.66 K/mm3 (4.00-11.30)
--- NOTE | 2024-05-05 05:59 | NUR ---
SHIFT SUMMARY PATIENT WAS MUCH MORE VERBAL AND WAS ABLE TO MAKE SOME NEEDS KNOWN. SHE HAD A VISIT WITH DAUGHTER AND GRAND DAUGHTER THIS EVENING. PT APPEARED IN GOOD SPIRITS. AT APPROXIMATLEY 2250 PT STATED HER FEED TUBE WAS LEAKING. ABLE TO VERIFY DRAINAGE FROM RIGHT SIDE NARES. FEEDING WAS PAUSED AND PATIENT CLEANED UP. O2 LEVELS WERE IN MID 90'S AND PULSE WAS 82-84. THERE APPEARED TO BE WHAT LOOKED LIKE DRIED BLOOD ON THE INSIDE OF FEEDING TUBE IT WAS TO ENTER THE NARE. OEM SALES MANAGER DR CONTACTED AND AN ORDER FOR ABDOMINAL XRAY 1V FOR PLACEMENT OBTAINED. WHILE XRAY TOOK IMAGE IT WAS DISCOVERED THAT FEED TUBE WAS NOT INSERTED AND WAS JUST OUTSIDE THE NARE. OEM SALES MANAGER WAS CONTACTED AGAIN AND ADVISED TO LET PATIENT REST THROUGH THE NIGHT AND WILL NEED TO BE REPLACED IN THE MORNING. PT'S DEXTROSE 5% WAS GIVEN AND PATIENT TOLERATED WELL. PATIENT APPEARED TO SLEEP THROUGH THE NIGHT WITHOUT FURTHER ISSUES. BED IN LOW POSITION, RAILS TIMES TWO, AND CALL LIGHT WITHIN REACH.
[2024-05-05 06:09] LABS: Bun/Creatinine Ratio 26.2 (12.0-20.0); Calcium, Blood 9.2 mg/dL (8.5-10.1); Creatinine, Blood 1.07 mg/dL (0.40-1.00); Potassium, Blood 3.5 mmol/L (3.5-5.5)
[2024-05-05 07:47] VITALS: BP 175/72
[2024-05-05 10:45] VITALS: BP 117/62
[2024-05-05 13:26] VITALS: BP 113/59
[2024-05-05] MEDS ORDERED: Potassium Chloride 20 MEQ/15 ML UDC PO ONE (14:20)
[2024-05-05] MEDS ORDERED: OxyCODONE 5 mg/Acetamin 325 mg TABLET PO PRN (14:20)
[2024-05-05] MEDS ORDERED: Furosemide 10 MG/ML 4ML Vial IV ONE (14:25)
[2024-05-05 15:05] VITALS: BP 95/64
--- NOTE | 2024-05-05 18:29 | NUR ---
SHIFT SUMMARY: PATIENT A&OX4. PATIENT ABLE TO RESPOND AND VERBALIZE NEEDS. NG TUBE DISCONTINUED, PATIENT SAW ST THIS MORNING AND IS ON A MINCED AND MOIST DIET. PATIENT ABLE TO TAKE MEDICATIONS WHOLE WITH WATER. PATIENT IV NOT PATENT AT 1800 WHEN ATTEMPTING TO FLUSH PRIOR TO IV ABX ADMINISTRATION. REMOVED IV FROM RIGHT WRIST. NEW IV ATTEMPTED BY TRINA MARTE D/T SWELLING IN HANDS AND ARMS UNABLE TO START NEW IV. PATIENT'S BED IN LOW POSITION AND CALL LIGHT IS WITHIN REACH.
[2024-05-05 19:22] VITALS: BP 127/57
[2024-05-06 03:06] VITALS: BP 148/59
[2024-05-06 07:16] VITALS: BP 159/63
--- NOTE | 2024-05-06 07:45 | NUR ---
SHIFT SUMMARY PATIENT SLEPT MUCH OF THE NIGHT, NO PRN MEDS NEEDED. TELE SR 69, DELUNA DRAINING YELLOW URINE.
[2024-05-06 08:04] LABS: Albumin, Blood 2.1 g/dL (3.4-5.0); Anion Gap 10 mmol/L (3-11); Blood Urea Nitrogen 26 mg/dL (8-24); Bun/Creatinine Ratio 23.9 (12.0-20.0); CO2, Blood 32 mmol/L (21-32); Calcium, Blood 9.1 mg/dL (8.5-10.1); Chloride, Blood 109 mmol/L (98-108); Creatinine, Blood 1.09 mg/dL (0.40-1.00); Glomerular Filtration Rate 55 (60-); Glucose, Blood 115 mg/dL (70-99); Phosphorus, Blood 2.1 mg/dL (2.5-4.9); Potassium, Blood 3.9 mmol/L (3.5-5.5); Sodium, Blood 147 mmol/L (136-145)
[2024-05-06] MEDS ORDERED: Furosemide 10 MG/ML 4ML Vial IV ONE (10:45)
[2024-05-06] MEDS ORDERED: Potassium Phosphate Dibasic 30 MM in Dextrose 5% 500 ML IV STA (10:50)
--- NOTE | 2024-05-06 15:00 | NUR ---
TELEMETRY NOTIFIED ELONGATED SETH FARAH FROM [employer] CALLED TO NOTIFY THAT THE PATIENT HAS A QTC OF O.52. MD NOTIFIED VIA PHONE, NO NEW ORDERS AT THIS TIME.
[2024-05-06 16:08] VITALS: BP 151/78
--- NOTE | 2024-05-06 17:25 | NUR ---
SHIFT SUMMARY PATIENT A/OX4, ABLE TO MAKE NEEDS KNOWN. PLEASANT AND COOPERATIVE WITH NURSING STAFF BUT HESITANT TO PARTICIPATE WITH THERAPY SERVICES TODAY. PHYSICAL THERAPY ASSESSED PATIENT THIS AFTERNOON, PATIENT 1 PERSON ASSIST TO TARNSFER TO CHAIR. CIRCULATION LIBRARIAN UPGRADED DIET TO SOFT BITE SIZE. PATIENT WEANED FROM SUPPLEMENTAL OXYGEN THIS MORNING, SPO2 WNL ON ROOM AIR, TOLERATING WELL. DENIES SOB. MEPLEX REPLACED TO PRESSURE INJURY ON SACRUM. POTASSIUM REPLACED IV PER OCT. TELEMETRY IN PLACE, QTC 0.52 BUT PATIENT IN SINUS RHYTHYM. NO OTHER CONCERNS THIS SHIFT.
[2024-05-06 20:17] VITALS: BP 176/82
[2024-05-07 03:54] VITALS: BP 158/66
--- NOTE | 2024-05-07 05:39 | NUR ---
SHIFT SUMMARY PATIENT WAS MEDICATED ONCE FOR BACK PAIN. TELE SR 62. DELUNA DRAINING YELLOW URINE.
[2024-05-07 07:11] VITALS: BP 152/59
[2024-05-07 08:53] LABS: BASOPHILS ABSOLUTE AUTO 0.04 K/mm3 (0.00-0.23); BASOPHILS PERCENT AUTO 0 % (0-2); EOSINOPHILS ABSOLUTE AUTO 0.63 K/mm3 (0.00-0.68); EOSINOPHILS PERCENT AUTO 7 % (0-6); Hematocrit 35.1 % (33.0-51.0); Hemoglobin 10.8 g/dL (11.5-16.0); IMMATURE GRAN ABSOLUTE AUTO 0.04 K/mm3 (0.00-0.10); IMMATURE GRAN PERCENT AUTO 0 % (0-1); LYMPHOCYTES ABSOLUTE AUTO 1.97 K/mm3 (0.84-5.20); LYMPHOCYTES PERCENT AUTO 20 % (21-46); MONOCYTES ABSOLUTE AUTO 0.49 K/mm3 (0.16-1.47); MONOCYTES PERCENT AUTO 5 % (4-13); Mean Corpuscular HGB 27.1 pg (26.0-34.0); Mean Corpuscular HGB Conc 30.8 g/dL (31.5-36.5); Mean Corpuscular Volume 88 fL (80-100); NEUTROPHILS ABSOLUTE AUTO 6.59 K/mm3 (1.96-9.15); NEUTROPHILS PERCENT AUTO 68 % (41-73); Platelet Count 294 K/mm3 (150-400); RDW Coefficient Variation 15.1 % (11.7-14.2); RDW Standard Deviation 48.9 fL (35.1-46.3); Red Blood Cell Count 3.99 M/mm3 (3.80-5.20); White Blood Cell Count 9.76 K/mm3 (4.00-11.30)
--- NOTE | 2024-05-07 08:56 | NUR ---
PLEASANT AND COOPERATIVE TO CARE THIS AM, LAB IN DRAWING PATIENT NOW, CLEARLY MAKES NEEDS KNOWN, CALL LIGHT WITH IN REACH
[2024-05-07] MEDS ORDERED: Lisinopril 20 MG Tab PO SCH (09:00)
[2024-05-07 09:18] LABS: Albumin, Blood 2.5 g/dL (3.4-5.0); Anion Gap 5 mmol/L (3-11); Blood Urea Nitrogen 25 mg/dL (8-24); CO2, Blood 34 mmol/L (21-32); Calcium, Blood 8.7 mg/dL (8.5-10.1); Chloride, Blood 105 mmol/L (98-108); Creatinine, Blood 1.19 mg/dL (0.40-1.00); Glomerular Filtration Rate 49 (60-); Glucose, Blood 119 mg/dL (70-99); Phosphorus, Blood 3.3 mg/dL (2.5-4.9); Potassium, Blood 3.4 mmol/L (3.5-5.5); Sodium, Blood 141 mmol/L (136-145)
[2024-05-07] MEDS ORDERED: Potassium Chloride 20 MEQ/15 ML UDC PO ONE (11:35)
[2024-05-07 14:39] VITALS: BP 121/51
--- NOTE | 2024-05-07 18:04 | NUR ---
NO ACUTE CHANGES, AMBULATED WITH PT, SHOWERED TODAY, CLEARLY MAKES NEEDS REGI SHIRLEY DISCONTINUED. CALL LIGHT WITH IN REACH, VSS, LIDO PACTH TO LOWER BACK, ALERT AND ORIENTED TO ALL, PLEASANT TO CARE, WILL RELAY TO PM RN
[2024-05-07 20:46] VITALS: BP 130/50
[2024-05-08 05:26] VITALS: BP 132/45
--- NOTE | 2024-05-08 05:43 | NUR ---
Shift Summary Pt had Baer removed yesterday, she is voiding continent without issue this shift. She is AOx4, 1 SBA to the BR with FWW. She does c/o back pain, repositioned and medicated per EMAR. On tele, no events. VSS, cooperative with care.
[2024-05-08 06:26] LABS: Bun/Creatinine Ratio 22.2 (12.0-20.0); Calcium, Blood 8.7 mg/dL (8.5-10.1); Creatinine, Blood 1.26 mg/dL (0.40-1.00); Potassium, Blood 3.8 mmol/L (3.5-5.5)
[2024-05-08 07:27] VITALS: BP 138/57
[2024-05-08 09:20] VITALS: BP 135/52
[2024-05-08] MEDS ORDERED: Percocet 5-3251 EACH PO (11:29)
== END 2024-05-08 13:00 | disposition hospice, inpatient (51) | DRG 91 ==
LOC: ER 18:35 → MEDS 18:36 → ENPENDDIS 05-08 11:15 → MEDS 05-08 13:00
PROVIDERS: Internal Medicine; Student in an Organized Health Care Education/Training Program; ADMIT Family Medicine
PROC: 0DH67UZ Insertion of Feeding Device into Stomach, Via Natural or Artificial Opening (ICD-10-PCS; principal; 2024-05-01)
DX: G92.8 Other toxic encephalopathy (principal); J18.9 Pneumonia, unspecified organism; N17.0 Acute kidney failure with tubular necrosis; E87.0 Hyperosmolality and hypernatremia; I16.1 Hypertensive emergency; E87.20 Acidosis, unspecified; E87.1 Hypo-osmolality and hyponatremia; I67.4 Hypertensive encephalopathy; E86.1 Hypovolemia; E86.0 Dehydration; R94.31 Abnormal electrocardiogram [ECG] [EKG]; E87.5 Hyperkalemia; I10 Essential (primary) hypertension; L89.152 Pressure ulcer of sacral region, stage 2; E83.39 Other disorders of phosphorus metabolism; F32.A Depression, unspecified; M54.9 Dorsalgia, unspecified; G89.29 Other chronic pain; Q06.8 Other specified congenital malformations of spinal cord; Z90.49 Acquired absence of other specified parts of digestive tract; Z98.890 Other specified postprocedural states; Z88.1 Allergy status to other antibiotic agents; Z88.0 Allergy status to penicillin; Z79.82 Long term (current) use of aspirin; Z79.899 Other long term (current) drug therapy; D64.9 Anemia, unspecified; E88.09 Other disorders of plasma-protein metabolism, not elsewhere classified
CPT/HCPCS: 0241U; 36415; 51701; 70450; 71045; 76770; 80048; 80053; 80069; 81001; 81003; 82803; 83605; 83735; 83880; 84132; 84145; 84295; 84484; 85025; 85027; 87086; 92526; 92610; 93005; 93010; 94640; 94664; 94760; 94762; 96361; 96361-59; 96372; 96374-59; 96375; 96376; 97110; 97161; 97165; 97530; 99285-25; A9270; C1751; G0378; J0360; J0696; J1170; J1650; J1815; J1940; J2405; J3010; J3475; J7030; J7050; J7060; J7070; J7799

== ENCOUNTER 2024-05-24 02:18 | Inpatient (IN) | payer MEDICARE, OTHER ==
[~2024-05-24] VITALS: Ht 175.3 cm; Wt 59.1 kg
[~2024-05-24 02:18] MED LIST changes: -Aspir 8181 MG; +Aspir 8181 MG PO; +Celexa20 MG PO; +LISINOPRIL-HCT1 EAC1 PO; +METO50ER PO; +POTCHL20ER PO; +Percocet 5-3251 EACH PO
[2024-05-24 02:53] LABS: BASOPHILS ABSOLUTE AUTO 0.07 K/mm3 (0.00-0.23); BASOPHILS PERCENT AUTO 1 % (0-2); EOSINOPHILS ABSOLUTE AUTO 0.23 K/mm3 (0.00-0.68); EOSINOPHILS PERCENT AUTO 2 % (0-6); Hematocrit 31.8 % (33.0-51.0); IMMATURE GRAN ABSOLUTE AUTO 0.06 K/mm3 (0.00-0.10); IMMATURE GRAN PERCENT AUTO 0 % (0-1); LYMPHOCYTES ABSOLUTE AUTO 1.56 K/mm3 (0.84-5.20); LYMPHOCYTES PERCENT AUTO 10 % (21-46); MONOCYTES ABSOLUTE AUTO 1.07 K/mm3 (0.16-1.47); MONOCYTES PERCENT AUTO 7 % (4-13); Mean Corpuscular HGB 28.1 pg (26.0-34.0); Mean Corpuscular HGB Conc 31.4 g/dL (31.5-36.5); Mean Corpuscular Volume 89 fL (80-100); Mean Platelet Volume 12.2 fL (9.1-12.4); NEUTROPHILS ABSOLUTE AUTO 12.32 K/mm3 (1.96-9.15); NEUTROPHILS PERCENT AUTO 80 % (41-73); Platelet Count 202 K/mm3 (150-400); RDW Coefficient Variation 15.6 % (11.7-14.2); RDW Standard Deviation 51.1 fL (35.1-46.3); Red Blood Cell Count 3.56 M/mm3 (3.80-5.20); White Blood Cell Count 15.31 K/mm3 (4.00-11.30)
[2024-05-24 03:13] LABS: Albumin, Blood 3.2 g/dL (3.4-5.0); Albumin/Globulin Ratio 0.7 (0.8-1.8); Bilirubin, Total 0.5 mg/dL (0.1-1.0); Bun/Creatinine Ratio 12.8 (12.0-20.0); Calcium, Blood 9.4 mg/dL (8.5-10.1); Creatinine, Blood 3.44 mg/dL (0.40-1.00); Globulin, Blood 4.7 g/dL (2.2-4.0); Potassium, Blood 5.5 mmol/L (3.5-5.5); Total Protein, Blood 7.9 g/dL (6.4-8.2)
[2024-05-24] MEDS ORDERED: NS 1,000 ML IV SCH (03:35)
[2024-05-24] MEDS ORDERED: Ipratropium/Albuterol SulF 2.5-0.5MG/3 ML Amp INH ONE (03:40)
[2024-05-24] MEDS ORDERED: Azithromycin 500 MG in NS 250 ML IV ONE (03:40)
[2024-05-24 04:28] LABS: Influenza A, PCR NEGATIVE (NEGATIVE); Influenza B, PCR NEGATIVE (NEGATIVE); Resp Syncytial Virus, PCR NEGATIVE (NEGATIVE); SARS-Cov-2 (COVID-19) PCR, MMC NEGATIVE (NEGATIVE)
[2024-05-24] MEDS ORDERED: Bisacodyl 10 MG Supp PR PRN (05:10)
[2024-05-24] MEDS ORDERED: Acetaminophen 325 MG TABLET PO PRN (05:10)
[2024-05-24] MEDS ORDERED: Magnesium Hydroxide Conc 10 ML UDC PO PRN (05:10)
[2024-05-24] MEDS ORDERED: FLU VACC TS2024-25(6MOS UP)/PF 45 MCG/0.5 ML SYRINGE IM SCH (05:10)
[2024-05-24] MEDS ORDERED: MethylPREDNISolone Sod Succ 125 MG Vial IV SCH (05:10)
[2024-05-24] MEDS ORDERED: Ipratropium/Albuterol SulF 2.5-0.5MG/3 ML Amp INH PRN (05:20)
[2024-05-24] MEDS ORDERED: TiZANidine HCl 4 MG Tab PO PRN (05:25)
[2024-05-24] MEDS ORDERED: Lactated Ringer's 1,000 ML IV SCH (05:55)
[2024-05-24 07:56] VITALS: BP 121/76
[2024-05-24] MEDS ORDERED: Sennosides 8.6 MG Tab PO SCH (09:00)
[2024-05-24] MEDS ORDERED: Aspirin 81 MG TabEC PO SCH (09:00)
[2024-05-24] MEDS ORDERED: Citalopram Hydrobromide 20 MG Tab PO SCH (09:00)
[2024-05-24] MEDS ORDERED: Docusate Sodium 100 MG Cap PO SCH (09:00)
[2024-05-24] MEDS ORDERED: buprenorphine HCL 2 MG TAB.SUBL SL SCH (09:00)
[2024-05-24] MEDS ORDERED: Metoprolol Succinate 50 MG TABCR PO SCH (09:00)
[2024-05-24 10:03] LABS: Source, Urine Clean Catch
[2024-05-24 10:06] LABS: Appearance, Urine Clear (Clear); Bilirubin, Urine Neg (Neg); Blood, Urine Neg (Neg); Glucose Qualitative, Urine Neg (Neg); Ketones, Urine Neg (Neg); Leukocyte Esterase, Urine Neg (Neg); Nitrite, Urine Neg (Neg); Protein, Urine Neg (Neg); Urobilinogen, Urine NORM (Normal)
[2024-05-24 10:09] LABS: Color, Urine No Color (P-Yellow)
[2024-05-24 11:16] VITALS: BP 144/64
[2024-05-24 11:27] LABS: U Amphetamine Screen Not Detected; U Barbituate Screen Not Detected; U Benzodiazapine Screen Not Detected; U Buprenorphine Screen Not Detected; U Cannabinoids Screen Not Detected; U Cocaine Screen Not Detected; U Methadone Screen Not Detected; U Methamphetamine Screen Not Detected; U Opiates Screen Not Detected; U Oxycodone Screen Not Detected; U Phencyclidine Screen Not Detected
--- NOTE | 2024-05-24 11:47 | NUR ---
ARRIVAL TO PCU: PT ARRIVED TO PCU-6 VIA GURNEY AT 0825. PT ABLE TO STAND & TRANSFER TO BED W/ 2P STAFF ASSIST D/T WEAKNESS. PT LETHARGIC, ORIENTED X3. UNSURE ABOUT CURRENT SITUATION & IS A POOR HISTORIAN. ABLE TO COMMUNICATE NEEDS W/ STAFF. VSS. HR 50-60'S, SINUS ON TELE. BP STABLE, MAP >65. DENIES CHEST PAIN/PRESSURE. SPO2 >95% ON 4L NC ON ARRIVAL, ABLE TO BE TITRATED TO ROOM AIR & MAINTAIN SPO2 >90%. AFEBRILE. PT UP TO [facility], ABLE TO VOID APPROX 250ML. BLADDER SCAN COMPLETED, >1000ML POST-VOID VOLUME SHOWING. CALL PLACED TO MD JOSUE. MD JOSUE W/ ORDERS TO PLACE DELUNA CATHETER DUE TO URINARY RETENTION. URINE SAMPLE SENT FOLLOWING CATH PLACEMENT BY THIS RN. PT'S DAUGHTER TO BEDSIDE THIS AM, STATES SHE WILL BRING PT'S UPDATED MEDICATION LIST BACK THIS AFTERNOON PT'S PCP JUST UPDATED MEDICATIONS ON 05/22/24. PT ORIENTED TO ROOM/UNIT/CALL LIGHT. FIRE SAFETY/IGNITION RISK ASSESSED; PT IS A FORMER SMOKER, NO IGNITION SOURCES PRESENT ON ADMISSION. NO OTHER NEEDS AT THIS TIME, PT IS RESTING IN BED. CALL LIGHT IN REACH, BED ALARM ON FOR PT SAFETY.
--- NOTE | 2024-05-24 12:30 | NUR ---
PT CHANGED TO MEDICAL W/ TELE STATUS PER MD.
[2024-05-24] MEDS ORDERED: METO50 PO (13:28)
[2024-05-24] MEDS ORDERED: PREG150 PO (13:29)
[2024-05-24] MEDS ORDERED: Cipro500 MG PO (13:32)
[2024-05-24] MEDS ORDERED: AMLO5 PO (13:33)
[2024-05-24] MEDS ORDERED: OXYC10TA19 PO (13:35)
[2024-05-24] MEDS ORDERED: BREZTRI AEROS10.7 GM (13:36)
[2024-05-24 14:25] LABS: Bun/Creatinine Ratio 13.6 (12.0-20.0); Calcium, Blood 8.5 mg/dL (8.5-10.1); Creatinine, Blood 3.01 mg/dL (0.40-1.00); Potassium, Blood 5.5 mmol/L (3.5-5.5)
[2024-05-24 15:25] VITALS: BP 129/53
--- NOTE | 2024-05-24 17:36 | NUR ---
END OF SHIFT NOTE: NO ACUTE EVENTS THIS SHIFT. PT HAS REMAINED A/OX3-4, HAS SLEPT INTERMITTENTLY THIS AFTERNOON. ABLE TO COMMUNICATE NEEDS W/ STAFF. HR 50-60'S, SINUS-SINUS ASTRID ON TELE. SBP 120-140'S, MAP >65. DENIES CHEST PAIN/PRESSURE. SPO2 >90% ON ROOM AIR, RESPIRATIONS EVEN & UNLABORED. AFEBRILE. DELUNA CATH REMAINS IN PLACE, PATENT & DRAINING YELLOW URINE TO GRAVITY. NO BM'S. REPOSITIONING SELF INDEPENDENTLY IN BED. MED REC COMPLETED THIS AFTERNOON. PT REMAINS MEDICAL W/ TELE STATUS. SITTING UP IN BED EATING DINNER AT THIS TIME. CALL LIGHT IN REACH.
[2024-05-24] MEDS ORDERED: Ipratropium/Albuterol SulF 2.5-0.5MG/3 ML Amp INH SCH (18:00)
[2024-05-24] MEDS ORDERED: Albuterol 2.5 MG/3 ML VIAL INH PRN (18:00)
[2024-05-24 20:03] VITALS: BP 160/60
[2024-05-24] MEDS ORDERED: Pregabalin 75 MG Cap PO SCH (21:00)
[2024-05-25 02:22] VITALS: BP 150/65
[2024-05-25 07:30] VITALS: BP 138/52
--- NOTE | 2024-05-25 07:39 | NUR ---
COFFIN MAKER SUMMARY/PT TRANSFER FROM PCU. PT ARRIVED TO MED FLOOR AT 2135. PT A/OX3. ABLE TO MAKE NEEDS KNOWN. ORIENTED PT TO ROOM AND CALL LIGHT. PT 1PA TO BSC. PT HAS DELUNA IN PLACE; PATENT AND DRAINING TO GRAVITY. PT DENIES SOB AND PAIN. SHIFT ASSESSMENT AND IV ASSESSMENT COMPLETED PRIOR TO TRANSFER. REVIEWED AND AGREE WITH CHARTED ASSESSMENT. PT ABLE TO MAKE NEEDS KNOWN. CALL LIGHT ACCESSIBLE.
[2024-05-25 08:39] LABS: Bun/Creatinine Ratio 16.8 (12.0-20.0); Creatinine, Blood 2.8 mg/dL (0.40-1.00)
[2024-05-25] MEDS ORDERED: AmLODIPine Besylate 5 MG Tab PO SCH (09:00)
[2024-05-25] MEDS ORDERED: Heparin Sodium,Porcine 5,000 UNIT/0.5 ML SDV SC SCH (09:00)
[2024-05-25 13:46] LABS: Bun/Creatinine Ratio 18.7 (12.0-20.0); Calcium, Blood 9.4 mg/dL (8.5-10.1); Creatinine, Blood 2.62 mg/dL (0.40-1.00)
--- NOTE | 2024-05-25 13:50 | NUR ---
1350 RN WAS NOTIFIED OF CRITICAL VALUE: POTASSIUM 6.0. THIS RN NOTIFIED DR SIDDIQUI WAS THE VALUE. DR CONFIRMED HE WOULD "DO SOMETHING ABOUT IT".
[2024-05-25 15:40] VITALS: BP 154/65
[2024-05-25] MEDS ORDERED: Polyethylene Glycol 3350 17 gm PO PRN (15:50)
[2024-05-25 15:58] LABS: Bun/Creatinine Ratio 18.8 (12.0-20.0); Creatinine, Blood 2.66 mg/dL (0.40-1.00); Potassium, Blood 5.5 mmol/L (3.5-5.5)
--- NOTE | 2024-05-25 18:33 | NUR ---
SHIFT SUMMARY- PT HAS HAD NO ACUTE CHANGES T/O THE DAY. PT HAD A FULL SHOWER THIS AFTERNOON. DELUNA PLACED IN ED THIS VISIT FOR ACUTE RETENTION, IN PLACE PATENT AND DRAINING TO GRAVITY. URINE OUTPUT IS YELLOW. PT IS A 1PA TO THE BSC IF NEEDED, SHE WAS ABLE TO AMBULATE TO THE BATHROOM FOR HER SHOWER. PT IN BED, CALL LIGHT IN REACH NO S&S OF DISTRESS NOTED.
[2024-05-25 19:19] VITALS: BP 168/77
[2024-05-25] MEDS ORDERED: buprenorphine HCL 2 MG TAB.SUBL SL SCH (19:53)
[2024-05-26 04:06] VITALS: BP 105/61
[2024-05-26 05:47] LABS: BASOPHILS ABSOLUTE AUTO 0.01 K/mm3 (0.00-0.23); BASOPHILS PERCENT AUTO 0 % (0-2); EOSINOPHILS PERCENT AUTO 0 % (0-6); Hematocrit 25.1 % (33.0-51.0); Hemoglobin 7.7 g/dL (11.5-16.0); IMMATURE GRAN ABSOLUTE AUTO 0.04 K/mm3 (0.00-0.10); IMMATURE GRAN PERCENT AUTO 0 % (0-1); LYMPHOCYTES ABSOLUTE AUTO 1.64 K/mm3 (0.84-5.20); LYMPHOCYTES PERCENT AUTO 15 % (21-46); MONOCYTES ABSOLUTE AUTO 0.41 K/mm3 (0.16-1.47); MONOCYTES PERCENT AUTO 4 % (4-13); Mean Corpuscular HGB Conc 30.7 g/dL (31.5-36.5); Mean Corpuscular Volume 88 fL (80-100); Mean Platelet Volume 12.3 fL (9.1-12.4); NEUTROPHILS ABSOLUTE AUTO 8.54 K/mm3 (1.96-9.15); NEUTROPHILS PERCENT AUTO 80 % (41-73); Platelet Count 192 K/mm3 (150-400); RDW Coefficient Variation 16.2 % (11.7-14.2); RDW Standard Deviation 53.1 fL (35.1-46.3); Red Blood Cell Count 2.85 M/mm3 (3.80-5.20); White Blood Cell Count 10.64 K/mm3 (4.00-11.30)
[2024-05-26 06:33] LABS: Albumin, Blood 2.8 g/dL (3.4-5.0); Albumin/Globulin Ratio 0.7 (0.8-1.8); Bilirubin, Total 0.2 mg/dL (0.1-1.0); Bun/Creatinine Ratio 22.8 (12.0-20.0); Calcium, Blood 8.6 mg/dL (8.5-10.1); Creatinine, Blood 2.5 mg/dL (0.40-1.00); Globulin, Blood 3.8 g/dL (2.2-4.0); Potassium, Blood 5.7 mmol/L (3.5-5.5); Total Protein, Blood 6.6 g/dL (6.4-8.2)
[2024-05-26 06:47] LABS: IMMATURE RETIC FRACTION 21.1 % (2.3-16.0); RETIC HGB EQUIVALENT 25.9 pg (28.20-36.60); RETICULOCYTE ABSOLUTE 0.07 M/mm3 (0.0200-0.1100); RETICULOCYTE COUNT PERCENT 2.5 % (0.50-2.50)
--- NOTE | 2024-05-26 07:30 | NUR ---
TIE TAPE MACHINE OPERATOR SUMMARY PT A/OX3. ABLE TO MAKE NEEDS KNOWN. AT BEGINNING OF SHIFT PT REQUESTING BUPRINORPHINE FOR PAIN. PT C/O FLANK AND ABD PAIN 06/11. CALL TO PRODUCT DESIGN SPECIALIST RESIDENT--NEW ORDER FOR BUPRINORPHINE. PT REPORTED IMPROVEMENT IN PAIN. ABD IS FIRM, MILDLY DISTENDED, AND TENDER. PT STATED SHE FEELS "FULL" AND SAID IT FELT LIKE A FULL BLADDER. BLADDER SCAN SHOWED NO RESIDUAL URINE IN BLADDER. MORNING LABS SHOWED MARKED DROP IN HGB AND WBC. CALL TO PRODUCT DESIGN SPECIALIST RESIDENT/BALWINDER TO ADVISE OF CHANGES. NO NEW ORDER AT THIS TIME BUT STATED HE WOULD ADVISE ONCOMING MEDICAL STAFF OF CHANGES. THIS RN GAVE REPORT TO DAY SHIFT NURSE AND ADVISED OF LAB CHANGES AND CALL TO RESIDENT.
[2024-05-26 07:39] LABS: Bilirubin, Direct 0.1 mg/dL (0.0-0.3); Bilirubin, Indirect 0.1 mg/dL (0.1-0.7); Bilirubin, Total 0.2 mg/dL (0.1-1.0)
[2024-05-26 07:56] VITALS: BP 131/104
[2024-05-26] MEDS ORDERED: MethylPREDNISolone Sod Succ 125 MG Vial IV SCH (09:00)
[2024-05-26 14:42] LABS: Bun/Creatinine Ratio 25.8 (12.0-20.0); Calcium, Blood 9.1 mg/dL (8.5-10.1); Creatinine, Blood 2.36 mg/dL (0.40-1.00); Potassium, Blood 5.4 mmol/L (3.5-5.5)
[2024-05-26 15:15] VITALS: BP 142/78
--- NOTE | 2024-05-26 16:44 | NUR ---
SHIFT SUMMARY PT IS A/OX4. NO ACUTE EVENTS THROUGHOUT THE SHIFT. ON TELE RUNNING SINUS ASTRID IN THE 50-60S. DELUNA CATHETER IN PLACE DRAINING CLEAR, YELLOW URINE. PT IS ON ROOM AIR MAINTAINING SATS >93%. PT IS A 1 PERSON STAND BY ASSIST WITH FWW AND GAIT BELT. PT'S DAUGHTERS AND SISTER VISITED THROUGHOUT THE DAY. PT USES THE CALL LIGHT APPROPRIATELY.
[2024-05-26 19:59] VITALS: BP 169/70
[2024-05-27 03:11] VITALS: BP 128/66
--- NOTE | 2024-05-27 04:11 | NUR ---
SHIFT SUMMARY PATIENT HAD NO ACUTE CHANGES. AXOX 4 AND ONE ASSIST FWW TO BSC. DENIES CHEST PAIN, SOB, AND N/V. REPORTED NUNEZ AND BACK SPASMS X ONE. TYLENOL 650 MG AND ZANAFLEX 4 MG GIVEN PER EMAR WITH GOOD EFFECT. PIV INTACT. TELE MONITOR NSR 77. DELUNA PATENT AND DRAINING TO GRAVITY CLEAR YELLOW URINE. COOPERATIVE WITH CARE. CALL LIGHT IN REACH. BED IN LOWEST POSITION. WILL CONTINUE TO MONITOR UNTIL DAY SHIFT NURSE ASSUMES CARE.
[2024-05-27 05:49] LABS: BASOPHILS ABSOLUTE AUTO 0.01 K/mm3 (0.00-0.23); BASOPHILS PERCENT AUTO 0 % (0-2); EOSINOPHILS PERCENT AUTO 0 % (0-6); Hematocrit 25.2 % (33.0-51.0); Hemoglobin 7.8 g/dL (11.5-16.0); IMMATURE GRAN ABSOLUTE AUTO 0.04 K/mm3 (0.00-0.10); IMMATURE GRAN PERCENT AUTO 1 % (0-1); LYMPHOCYTES ABSOLUTE AUTO 1.77 K/mm3 (0.84-5.20); LYMPHOCYTES PERCENT AUTO 27 % (21-46); MONOCYTES ABSOLUTE AUTO 0.44 K/mm3 (0.16-1.47); MONOCYTES PERCENT AUTO 7 % (4-13); Mean Corpuscular HGB 27.1 pg (26.0-34.0); Mean Corpuscular Volume 88 fL (80-100); Mean Platelet Volume 12.8 fL (9.1-12.4); NEUTROPHILS ABSOLUTE AUTO 4.22 K/mm3 (1.96-9.15); NEUTROPHILS PERCENT AUTO 65 % (41-73); Platelet Count 164 K/mm3 (150-400); RDW Coefficient Variation 15.9 % (11.7-14.2); RDW Standard Deviation 51.3 fL (35.1-46.3); Red Blood Cell Count 2.88 M/mm3 (3.80-5.20); White Blood Cell Count 6.48 K/mm3 (4.00-11.30)
[2024-05-27 06:21] LABS: Albumin, Blood 2.8 g/dL (3.4-5.0); Albumin/Globulin Ratio 0.7 (0.8-1.8); Bilirubin, Total 0.2 mg/dL (0.1-1.0); Bun/Creatinine Ratio 27.8 (12.0-20.0); Calcium, Blood 8.9 mg/dL (8.5-10.1); Creatinine, Blood 2.27 mg/dL (0.40-1.00); Globulin, Blood 3.8 g/dL (2.2-4.0); Potassium, Blood 5.1 mmol/L (3.5-5.5); Total Protein, Blood 6.6 g/dL (6.4-8.2)
[2024-05-27 07:34] VITALS: BP 136/74
[2024-05-27 14:06] LABS: Hematocrit 29.5 % (33.0-51.0); Hemoglobin 9.2 g/dL (11.5-16.0)
[2024-05-27 16:24] VITALS: BP 115/62
[2024-05-27 16:47] LABS: HAPTOGLOBIN 255 mg/dL (30-200)
--- NOTE | 2024-05-27 18:18 | NUR ---
SHIFT SUMMARY PT IS A/OX4. NO ACUTE CHANGES THROUGHOUT THIS SHIFT. PT IS A 1 PERSON SBA WITH FWW. THIS AFTERNOON THE PT DESCRIBED ONE EPISODE OF PAIN AND MUSCLE SPASMS IN HER BACK AND MEDICATED WITH PER OCT WITH TYLENOL AND ZANAFLEX. PT REMAINS ON RA WITH SATS >95%, ON TELE RUNNING SINUS RHTHYM/SINUS ASTRID. BLADDER TRAINING BEGUN IN ORDER TO DC THE DELUNA. DELUNA IS DRAINING CLEAR, YELLOW URINE WITH A LARGE AMOUNT OF OUTPUT THROUGHOUT THE SHIFT. PT'S DAUGHTER VISITED THIS AFTERNOON. PT CALLS USING THE CALL LIGHT APPROPRIATELY.
[2024-05-27 19:11] VITALS: BP 156/57
[2024-05-28 04:42] VITALS: BP 130/90
--- NOTE | 2024-05-28 05:27 | NUR ---
Patient alert and oriented, VSS, resting comfortably in bed overnight. PRN pain medication given once per patient request, see eMAR for details. Pina catheter in place, bladder training in effect: patient's pina being clamped by care staff, patient notifying staff when she has urge to void, clamp released and resecured after 10 minutes; patient tolerating well.
[2024-05-28 05:57] LABS: BASOPHILS ABSOLUTE AUTO 0.02 K/mm3 (0.00-0.23); BASOPHILS PERCENT AUTO 0 % (0-2); EOSINOPHILS PERCENT AUTO 0 % (0-6); Hematocrit 25.3 % (33.0-51.0); IMMATURE GRAN ABSOLUTE AUTO 0.06 K/mm3 (0.00-0.10); IMMATURE GRAN PERCENT AUTO 1 % (0-1); LYMPHOCYTES ABSOLUTE AUTO 2.35 K/mm3 (0.84-5.20); LYMPHOCYTES PERCENT AUTO 33 % (21-46); MONOCYTES ABSOLUTE AUTO 0.55 K/mm3 (0.16-1.47); MONOCYTES PERCENT AUTO 8 % (4-13); Mean Corpuscular HGB 27.4 pg (26.0-34.0); Mean Corpuscular HGB Conc 31.6 g/dL (31.5-36.5); Mean Corpuscular Volume 87 fL (80-100); NEUTROPHILS ABSOLUTE AUTO 4.17 K/mm3 (1.96-9.15); NEUTROPHILS PERCENT AUTO 58 % (41-73); Platelet Count 167 K/mm3 (150-400); RDW Coefficient Variation 15.7 % (11.7-14.2); RDW Standard Deviation 50.1 fL (35.1-46.3); Red Blood Cell Count 2.92 M/mm3 (3.80-5.20); White Blood Cell Count 7.15 K/mm3 (4.00-11.30)
[2024-05-28 06:17] LABS: Albumin/Globulin Ratio 0.8 (0.8-1.8); Bilirubin, Total 0.3 mg/dL (0.1-1.0); Bun/Creatinine Ratio 28.9 (12.0-20.0); Creatinine, Blood 2.28 mg/dL (0.40-1.00); Globulin, Blood 3.6 g/dL (2.2-4.0); Potassium, Blood 5.3 mmol/L (3.5-5.5); Total Protein, Blood 6.6 g/dL (6.4-8.2)
[2024-05-28 07:48] VITALS: BP 152/80
[2024-05-28] MEDS ORDERED: TiZANidine HCl 4 MG Tab PO PRN (15:05)
[2024-05-28 15:35] VITALS: BP 178/55
[2024-05-28 15:41] LABS: Albumin, Blood 3.3 g/dL (3.4-5.0); Anion Gap 13 mmol/L (3-11); Blood Urea Nitrogen 65 mg/dL (8-24); Bun/Creatinine Ratio 30.4 (12.0-20.0); CO2, Blood 23 mmol/L (21-32); Calcium, Blood 9.4 mg/dL (8.5-10.1); Chloride, Blood 104 mmol/L (98-108); Creatinine, Blood 2.14 mg/dL (0.40-1.00); Glomerular Filtration Rate 24 (60-); Glucose, Blood 210 mg/dL (70-99); Phosphorus, Blood 4.3 mg/dL (2.5-4.9); Potassium, Blood 5.8 mmol/L (3.5-5.5); Sodium, Blood 134 mmol/L (136-145)
[2024-05-28] MEDS ORDERED: Sodium Zirconium Cyclosilicate 10 GM Packet PO SCH (16:00)
--- NOTE | 2024-05-28 17:59 | NUR ---
SHIFT SUMMARY PT IS A/OX4. NO ACUTE CHANGES THROUGHOUT THIS SHIFT. PT PLANNED TO BE DISCHARGED TODAY, DECIDED TO MONITOR FOR ONE MORE DAY. PT IS A 1 PERSON SBA WITH FWW. DELUNA TAKING OUT THIS AM. POST-VOID RESIDUAL VOLUME OF 283 ML. PT ON STRICT I&O'S. PT HAS HOME 02 EVAL FOR 2L WITH ACTIVITY UPON DISCHARGE. PT ON RA THROUGHOUT THIS SHIFT, ON TELE RUNNING SINUS ASTRID IN THE 50'S. DISCHARGE COMPLETE, MEDS HAVE YET TO BE FAXED TO THE PHARMACY. PT CALLS USING THE CALL LIGHT APPROPRIATELY.
[2024-05-28 19:09] VITALS: BP 183/86
[2024-05-28 21:11] VITALS: BP 170/59
[2024-05-28] MEDS ORDERED: AmLODIPine Besylate 5 MG Tab PO ONE (22:00)
[2024-05-29 03:31] VITALS: BP 141/66
--- NOTE | 2024-05-29 06:08 | NUR ---
Patient alert and oriented, resting comfortably in bed overnight. PRN pain medications given x1, see eMAR for detail. Patient ambulating to restroom with standby assistance with FWW overnight, tolerating well, post-void residual <200 mL. Patient had high blood pressure at beginning of shift, hospitalist resident notified, one time dose of Amlodipine given as ordered. Patient anticipating discharge home sometime today.
[2024-05-29 06:15] LABS: BASOPHILS ABSOLUTE AUTO 0.02 K/mm3 (0.00-0.23); BASOPHILS PERCENT AUTO 0 % (0-2); EOSINOPHILS ABSOLUTE AUTO 0.02 K/mm3 (0.00-0.68); EOSINOPHILS PERCENT AUTO 0 % (0-6); Hematocrit 26.6 % (33.0-51.0); Hemoglobin 8.3 g/dL (11.5-16.0); IMMATURE GRAN ABSOLUTE AUTO 0.27 K/mm3 (0.00-0.10); IMMATURE GRAN PERCENT AUTO 3 % (0-1); LYMPHOCYTES PERCENT AUTO 29 % (21-46); MONOCYTES ABSOLUTE AUTO 0.88 K/mm3 (0.16-1.47); MONOCYTES PERCENT AUTO 9 % (4-13); Mean Corpuscular HGB 27.3 pg (26.0-34.0); Mean Corpuscular HGB Conc 31.2 g/dL (31.5-36.5); Mean Corpuscular Volume 88 fL (80-100); Mean Platelet Volume 12.5 fL (9.1-12.4); NEUTROPHILS PERCENT AUTO 59 % (41-73); Platelet Count 201 K/mm3 (150-400); RDW Coefficient Variation 15.7 % (11.7-14.2); RDW Standard Deviation 50.3 fL (35.1-46.3); Red Blood Cell Count 3.04 M/mm3 (3.80-5.20); White Blood Cell Count 9.79 K/mm3 (4.00-11.30)
[2024-05-29 06:55] LABS: Albumin, Blood 3.2 g/dL (3.4-5.0); Albumin/Globulin Ratio 0.9 (0.8-1.8); Bilirubin, Total 0.3 mg/dL (0.1-1.0); Bun/Creatinine Ratio 29.5 (12.0-20.0); Calcium, Blood 9.2 mg/dL (8.5-10.1); Creatinine, Blood 1.83 mg/dL (0.40-1.00); Globulin, Blood 3.7 g/dL (2.2-4.0); Potassium, Blood 4.4 mmol/L (3.5-5.5); Total Protein, Blood 6.9 g/dL (6.4-8.2)
[2024-05-29 07:22] VITALS: BP 141/66
[2024-05-29] MEDS ORDERED: AmLODIPine Besylate 5 MG Tab PO SCH (09:00)
[2024-05-29] MEDS ORDERED: LOKELMA10 GM PO (15:38)
--- NOTE | 2024-05-29 16:22 | NUR ---
PATIENT HAS DELUNA CATHETER PLACED IN ANTICIPATION OF DISCHARGE TONIGHT AT 1900. PER PATIENT WILL HAVE HOME TEACHING ON STRAIGHT CATHING. PATIENT IS AO X 4. DOES HAVE SOME EPISODES OF CONFUSION NOTED THIS AFTERNOON. HER VITAL SIGNS ARE STABLE AND WNL. WILL CONTINUE TO MONITOR THIS PATEINT CLOSELY UNTIL REPORT AND HAND OFF TO NOC SHIFT RN.
[2024-05-29 16:49] VITALS: BP 142/56
--- NOTE | 2024-05-29 20:01 | NUR ---
DISCHARGE NOTE: PT DISCHARGED TO CARE OF DAUGHTER MACHO, DRIVEN IN PRIVATE VEHICLE. PT WAS WHEELED TO EXIT VIA WHEELCHAIR POWERED BY THIS RN. DISCHARGE TEACHING REVIEWED, DAUGHTER ADVISED TO CALL [facility] TO SCHEDULE INTAKE APPT. PT DISCHARGED WITH PORTABLE O2 CONCENTRATOR, WEARING AT 2LPM. RN REVIEWED TEACHING ON PORTABLE 02 CONCENTRATOR, CATHETER CARE, AND INSTRUCTIONS FOR MEDICATIONS, F/U LABS AND APPT WITH PCP. DAUGHTER MACHO AND PT VERBALIZED UNDERSTANDING, NO QUESTIONS AT THIS TIME. IV WAS REMOVED BY DAY SHIFT RN. PT DISCHARGED WITH ALL PERSONAL BELONGINGS.
== END 2024-05-29 19:50 | disposition home health service (06) | DRG 682 ==
LOC: ER 02:18 → PCU 05:06 → ERHOLD 05:06 → MEDS 05:06 → PCU 08:18 → MEDS 21:32 → ENPENDDIS 05-28 11:25 → MEDS 05-29 19:50
PROVIDERS: Family Medicine; Family Medicine Adult Medicine; Hospitalist; Internal Medicine; Student in an Organized Health Care Education/Training Program; ADMIT Internal Medicine
DX: N17.9 Acute kidney failure, unspecified (principal); G92.8 Other toxic encephalopathy; J96.01 Acute respiratory failure with hypoxia; I50.33 Acute on chronic diastolic (congestive) heart failure; N39.0 Urinary tract infection, site not specified; I13.0 Hypertensive heart and chronic kidney disease with heart failure and stage 1 through stage 4 chronic kidney disease, or unspecified chronic kidney disease; G89.29 Other chronic pain; M54.9 Dorsalgia, unspecified; F32.A Depression, unspecified; R33.9 Retention of urine, unspecified; R94.31 Abnormal electrocardiogram [ECG] [EKG]; N18.9 Chronic kidney disease, unspecified; I25.2 Old myocardial infarction; Q06.8 Other specified congenital malformations of spinal cord; Z87.891 Personal history of nicotine dependence
CPT/HCPCS: 0241U; 36415; 71045; 71046; 76770; 80048; 80053; 80069; 81003; 82247; 82248; 83010; 83540; 83550; 83615; 83880; 84145; 84484; 85014; 85018; 85025; 85045; 93005; 93010; 94640; 94664; 94760; 94762; 96365; 97110; 97116; 97162; 97166; 97530; 99285-25; A9270; J0456; J1644; J2919; J7030; J7050

== ENCOUNTER 2024-06-04 19:29 | Inpatient (IN) | payer MEDICARE, OTHER ==
[~2024-06-04] VITALS: Ht 157.5 cm; Wt 60.6 kg
[~2024-06-04 19:29] MED LIST changes: +BREZTRI AEROS10.7 GM INH; +Cipro500 MG PO; +LOKELMA10 GM PO; +METO50 PO
[2024-06-04 22:21] LABS: BASOPHILS ABSOLUTE AUTO 0.06 K/mm3 (0.00-0.23); BASOPHILS PERCENT AUTO 0 % (0-2); EOSINOPHILS ABSOLUTE AUTO 0.24 K/mm3 (0.00-0.68); EOSINOPHILS PERCENT AUTO 1 % (0-6); Hematocrit 27.7 % (33.0-51.0); Hemoglobin 8.4 g/dL (11.5-16.0); IMMATURE GRAN ABSOLUTE AUTO 0.11 K/mm3 (0.00-0.10); IMMATURE GRAN PERCENT AUTO 1 % (0-1); LYMPHOCYTES ABSOLUTE AUTO 1.16 K/mm3 (0.84-5.20); LYMPHOCYTES PERCENT AUTO 6 % (21-46); MONOCYTES PERCENT AUTO 6 % (4-13); Mean Corpuscular HGB 27.1 pg (26.0-34.0); Mean Corpuscular HGB Conc 30.3 g/dL (31.5-36.5); Mean Corpuscular Volume 89 fL (80-100); Mean Platelet Volume 11.3 fL (9.1-12.4); NEUTROPHILS ABSOLUTE AUTO 17.45 K/mm3 (1.96-9.15); NEUTROPHILS PERCENT AUTO 87 % (41-73); Platelet Count 261 K/mm3 (150-400); RDW Coefficient Variation 15.8 % (11.7-14.2); RDW Standard Deviation 51.3 fL (35.1-46.3); White Blood Cell Count 20.12 K/mm3 (4.00-11.30)
[2024-06-04 23:07] LABS: Albumin/Globulin Ratio 0.8 (0.8-1.8); Bilirubin, Total 0.6 mg/dL (0.1-1.0); Bun/Creatinine Ratio 18.4 (12.0-20.0); Calcium, Blood 8.8 mg/dL (8.5-10.1); Creatinine, Blood 1.14 mg/dL (0.40-1.00); Potassium, Blood 4.2 mmol/L (3.5-5.5)
[2024-06-04] MEDS ORDERED: NS 1,000 ML IV SCH (23:55)
[2024-06-04] MEDS ORDERED: Azithromycin 500 MG in NS 250 ML IV ONE (23:55)
[2024-06-04] MEDS ORDERED: CefTRIAXone Sodium 1,000 MG in NS 50 ML IV ONE (23:55)
[2024-06-05] VITALS (8 sets, daily range): BP systolic 113–159; BP diastolic 54–62
[2024-06-05 00:42] LABS: Source, Urine Clean Catch
[2024-06-05 00:45] LABS: Appearance, Urine Hazy (Clear); Bilirubin, Urine Neg (Neg); Blood, Urine 5+ (Neg); Color, Urine Yellow (P-Yellow); Glucose Qualitative, Urine Neg (Neg); Ketones, Urine Neg (Neg); Leukocyte Esterase, Urine 1+ (Neg); Nitrite, Urine Neg (Neg); Protein, Urine 3+ (Neg); Urobilinogen, Urine NORM (Normal)
[2024-06-05 00:54] LABS: Bacteria Many /hpf; Red Blood Cells, Urine 50-100 /hpf (0-2); Squamous Epithelial Cells Few /hpf (Few); White Blood Cells, Urine 25-50 /hpf (0-5)
[2024-06-05 00:55] LABS: Amorphous Light (0-Heavy); Yeast/Fungi Urine Few /hpf
[2024-06-05] MEDS ORDERED: Ipratropium/Albuterol SulF 2.5-0.5MG/3 ML Amp INH SCH (02:00)
[2024-06-05] MEDS ORDERED: Bisacodyl 10 MG Supp PR PRN (02:40)
[2024-06-05] MEDS ORDERED: FLU VACC TS2024-25(6MOS UP)/PF 45 MCG/0.5 ML SYRINGE IM ONE (02:40)
[2024-06-05] MEDS ORDERED: Magnesium Hydroxide Conc 10 ML UDC PO PRN (02:40)
[2024-06-05] MEDS ORDERED: MethylPREDNISolone Sod Succ 125 MG Vial IV SCH (02:43)
[2024-06-05] MEDS ORDERED: Acetaminophen 650 MG Supp PR PRN (02:45)
[2024-06-05] MEDS ORDERED: Acetaminophen 325 MG TABLET PO PRN (02:45)
[2024-06-05] MEDS ORDERED: Furosemide 10 MG/ML 4ML Vial IV ONE (02:53)
[2024-06-05] MEDS ORDERED: buprenorphine HCL 2 MG TAB.SUBL SL SCH (03:02)
[2024-06-05] MEDS ORDERED: Metoprolol Tartrate 50 MG Tab PO SCH (03:05)
[2024-06-05] MEDS ORDERED: Vancomycin HCL 1,000 MG in NS 250 ML IV ONE (03:40)
[2024-06-05] MEDS ORDERED: Cefepime HCl 2,000 MG in NS 100 ML IV SCH (03:45)
[2024-06-05 04:00] LABS: Base Excess Venous -1.5 mmol/L; PCO2 Venous 51.1 mmHg (38-42)
[2024-06-05] MEDS ORDERED: Mometasone/Formoterol MDI 200/5 mcg 13 GM INH SCH (06:20)
[2024-06-05 08:15] LABS: BASOPHILS ABSOLUTE AUTO 0.03 K/mm3 (0.00-0.23); BASOPHILS PERCENT AUTO 0 % (0-2); EOSINOPHILS ABSOLUTE AUTO 0.01 K/mm3 (0.00-0.68); EOSINOPHILS PERCENT AUTO 0 % (0-6); Hematocrit 25.9 % (33.0-51.0); Hemoglobin 7.9 g/dL (11.5-16.0); IMMATURE GRAN ABSOLUTE AUTO 0.12 K/mm3 (0.00-0.10); IMMATURE GRAN PERCENT AUTO 1 % (0-1); LYMPHOCYTES ABSOLUTE AUTO 0.34 K/mm3 (0.84-5.20); LYMPHOCYTES PERCENT AUTO 2 % (21-46); MONOCYTES PERCENT AUTO 2 % (4-13); Mean Corpuscular HGB 27.1 pg (26.0-34.0); Mean Corpuscular HGB Conc 30.5 g/dL (31.5-36.5); Mean Corpuscular Volume 89 fL (80-100); Mean Platelet Volume 11.6 fL (9.1-12.4); NEUTROPHILS ABSOLUTE AUTO 18.14 K/mm3 (1.96-9.15); NEUTROPHILS PERCENT AUTO 95 % (41-73); Platelet Count 226 K/mm3 (150-400); RDW Coefficient Variation 15.8 % (11.7-14.2); RDW Standard Deviation 51.5 fL (35.1-46.3); Red Blood Cell Count 2.91 M/mm3 (3.80-5.20); White Blood Cell Count 19.04 K/mm3 (4.00-11.30)
[2024-06-05 08:40] LABS: Influenza A, PCR NEGATIVE (NEGATIVE); Influenza B, PCR NEGATIVE (NEGATIVE); Resp Syncytial Virus, PCR NEGATIVE (NEGATIVE); SARS-Cov-2 (COVID-19) PCR, MMC NEGATIVE (NEGATIVE)
[2024-06-05] MEDS ORDERED: N-Acetylcysteine 600 MG CAP PO SCH (09:00)
[2024-06-05] MEDS ORDERED: Sennosides 8.6 MG Tab PO SCH (09:00)
[2024-06-05] MEDS ORDERED: Heparin Sodium,Porcine 5,000 UNIT/0.5 ML SDV SC SCH (09:00)
[2024-06-05] MEDS ORDERED: Lactobacil 2-S.Thermo-Bifido 1 1 Cap PO SCH (09:00)
[2024-06-05] MEDS ORDERED: AmLODIPine Besylate 5 MG Tab PO SCH (09:00)
[2024-06-05] MEDS ORDERED: Citalopram Hydrobromide 20 MG Tab PO SCH (09:00)
[2024-06-05] MEDS ORDERED: Docusate Sodium 100 MG Cap PO SCH (09:00)
[2024-06-05] MEDS ORDERED: Lisinopril 20 MG Tab PO SCH (09:00)
[2024-06-05] MEDS ORDERED: Aspirin 81 MG TabEC PO SCH (09:00)
[2024-06-05 09:31] LABS: Albumin, Blood 2.7 g/dL (3.4-5.0); Anion Gap 10 mmol/L (3-11); Blood Urea Nitrogen 18 mg/dL (8-24); Bun/Creatinine Ratio 15.4 (12.0-20.0); CO2, Blood 29 mmol/L (21-32); Calcium, Blood 8.4 mg/dL (8.5-10.1); Chloride, Blood 104 mmol/L (98-108); Creatinine, Blood 1.17 mg/dL (0.40-1.00); Glomerular Filtration Rate 51 (60-); Glucose, Blood 210 mg/dL (70-99); Magnesium, Blood 1.1 mg/dL (1.6-2.4); Phosphorus, Blood 2.2 mg/dL (2.5-4.9); Potassium, Blood 4.3 mmol/L (3.5-5.5); Sodium, Blood 139 mmol/L (136-145)
[2024-06-05] MEDS ORDERED: Potassium Phosphate Dibasic 30 MM in Dextrose 5% 500 ML IV STA (10:10)
[2024-06-05] MEDS ORDERED: Magnesium Sulf 2 GM/Water 50ML 50 ML IV ONE (10:15)
[2024-06-05] MEDS ORDERED: NS 250 ML IV PRN (10:55)
[2024-06-05] MEDS ORDERED: Furosemide 10 MG / ML 2ML Vial IV SCH (14:00)
[2024-06-05] MEDS ORDERED: Zolpidem Tartrate 5 MG Tab PO PRN (14:05)
--- NOTE | 2024-06-05 18:51 | NUR ---
ADMITTED TO PCU FROM ED CAME IN DUE TO TROUBLE BREATHING WITH DECREASED 02 SATS AT HOME. DIAGNOSED WITH MULTIFOCAL PNA, ACUTE HYPOXEMIC RESP FAILYRE, DEHYDRATION AND SEPSIS. PT IS A/O ALTHOUGH DROWSY. WAKES EASILY WITH VERBAL STIMULATION. SR, BP WNL. ON 3-4 LITERS NC TO MAINTAIN 02 SAT > 90%. HAD 1 DOSE LASIX IN ED WITH GOOD RESULTS. GOOD APPETITE FOR LUNCH, DECLINED DINNER. DELUNA PATENT AND DRAINING YELLOW URINE. PLACED IN ED DUE TO URINARY RETENTION. SKIN WITH MOSTLY HEALED ULCERATION TO LEFT INNER BUTTOCK, DISCOLORATION AND ABRASIONS TO BUTTOCK WELL. PHOTOS TAKEN. PIV X3, ALL FLUSH WELL. NS TKO INFUSING WITH INTERMITTENT IVPB. TWO DAUGHTERS TO BEDSIDE TO VISIT, 1 LIVES WITH PT. BOTH UPDATED ON CURRENT CONDITION. CRITICAL MAG 1.1 REPORTED TO MD WITH ORDERS RECIEVED TO REPLACE. RECHECK MAG COMPLETED AND IS UP TO 2.1. ST EVAL COMPLETED AT BEDSIDE FOLLOWED BY FORMAL BARIUM SWALLOW IN RADIOLOGY. PT IS ASPIRATING SMALL AMOUNTS OF THIN LIQUIDS THEREFORE NECTAR THICK LIQUIDS HAVE BEEN RECOMMENDED BY ST. PT VERBALIZES UNDERSTANDING. POC ONGOING.
[2024-06-05] MEDS ORDERED: TiZANidine HCl 4 MG Tab PO SCH (21:00)
[2024-06-05] MEDS ORDERED: BREZTRI INH SCH (21:00)
[2024-06-05] MEDS ORDERED: Melatonin 5 MG Tablet PO SCH (21:00)
[2024-06-05] MEDS ORDERED: Pregabalin 75 MG Cap PO SCH (21:00)
[2024-06-06] VITALS (7 sets, daily range): BP systolic 94–137; BP diastolic 43–59
--- NOTE | 2024-06-06 00:46 | NUR ---
SPOKE WITH DR. JUAREZ. SOMEWHAT SIGNIFICANT DROP IN BP FROM 0000 VITALS. NOTIFIED OF THIS AND DISCUSSED PT BRIEFLY. DR. JUAREZ INFORMED THAT HE WOULD LOOK THROUGH CHART AND PUT IN ORDERS HE SAW FIT. CONTINUING TO MONITOR.
[2024-06-06 04:24] LABS: Albumin, Blood 2.5 g/dL (3.4-5.0); Anion Gap 10 mmol/L (3-11); Blood Urea Nitrogen 21 mg/dL (8-24); Bun/Creatinine Ratio 16.4 (12.0-20.0); CO2, Blood 31 mmol/L (21-32); Calcium, Blood 8.5 mg/dL (8.5-10.1); Chloride, Blood 103 mmol/L (98-108); Creatinine, Blood 1.28 mg/dL (0.40-1.00); Glomerular Filtration Rate 45 (60-); Glucose, Blood 186 mg/dL (70-99); Magnesium, Blood 2.1 mg/dL (1.6-2.4); Phosphorus, Blood 4.1 mg/dL (2.5-4.9); Potassium, Blood 4.7 mmol/L (3.5-5.5); Sodium, Blood 139 mmol/L (136-145)
--- NOTE | 2024-06-06 05:11 | NUR ---
SHIFT SUMMARY. SHIFT HAS BEEN UNREMARKABLE. PT AOX4, PLEASANT, COOPERATIVE WITH CARE, ABLE TO MAKE NEEDS KNOWN. HAS BEEN ABLE TO REST COMFORTABLY THROUGHOUT MOST OF SHIFT. NO PAIN REPORTED. WORE CPAP THROUGHOUT MOST OF NIGHT, WHEN NOT WEARING CPAP HAS BEEN ABLE TO MAINTAIN ADEQUATE SATURATION ON 2-4 L O2 VIA NC. THIS MORNING, BP DROPPED WHEN COMPARED TO [address] JUAREZ, SEE RELATED NOTE FOR DETAILS. SINCE THAT TIME, PT BP HAS REMAINED SOFT BUT STABLE. PT ASYMPTOMATIC, REPORTS BEING COMFORTABLE. Q2 HOUR REPOSITIONS. HR HAS SETTLED IN THE 50s WHILE SLEEPING, CONTINUES TO RUN SINUS. BED LOCKED IN LOWEST POSITION. CALL LIGHT LEFT WITHIN REACH. CONTINUING TO MONITOR.
[2024-06-06] MEDS ORDERED: Vancomycin HCL 1,000 MG in NS 250 ML IV SCH (06:00)
--- NOTE | 2024-06-06 10:42 | NUR ---
AM NOTE this rn assumed care at 0700. vital signs stable spo2 >90% on 3l nc. tele sinus rhythm patient is alert and oriented x4. neuro is intact. patient is able to make needs known and uses call light appropriately. patient is one person assist with walker. denies chest pain/pressure, pain, or shortness of breath. lung sounds dim upper and dim and coarse lower lobes. see shift assessment for further detials. daughter at bedside updated on current plan of treatment. md olea in room and spoke with the patient. plan of care is up to date.
--- NOTE | 2024-06-06 17:06 | NUR ---
shift summary patient neuro remains intact. vitals remain stable. spo2 >90% on 2l nc. tele sinus rhythm pina pulled this afternoon from order from md olea. pulled at 1615 and has not voided since removal. 600 out from pina. patient sitting in chair majority of the day and worked with physical therapy. plan remains up to date.
[2024-06-06] MEDS ORDERED: BREZTRI INH SCH (20:05)
[2024-06-06] MEDS ORDERED: Misc. Inhaler INH SCH (21:00)
[2024-06-07] VITALS (14 sets, daily range): BP systolic 96–146; BP diastolic 53–78
[2024-06-07 03:39] LABS: BASOPHILS ABSOLUTE AUTO 0.01 K/mm3 (0.00-0.23); BASOPHILS PERCENT AUTO 0 % (0-2); EOSINOPHILS PERCENT AUTO 0 % (0-6); Hematocrit 22.6 % (33.0-51.0); Hemoglobin 6.9 g/dL (11.5-16.0); IMMATURE GRAN ABSOLUTE AUTO 0.06 K/mm3 (0.00-0.10); IMMATURE GRAN PERCENT AUTO 0 % (0-1); LYMPHOCYTES ABSOLUTE AUTO 1.37 K/mm3 (0.84-5.20); LYMPHOCYTES PERCENT AUTO 9 % (21-46); MONOCYTES ABSOLUTE AUTO 0.74 K/mm3 (0.16-1.47); MONOCYTES PERCENT AUTO 5 % (4-13); Mean Corpuscular HGB 27.1 pg (26.0-34.0); Mean Corpuscular HGB Conc 30.5 g/dL (31.5-36.5); Mean Corpuscular Volume 89 fL (80-100); Mean Platelet Volume 11.7 fL (9.1-12.4); NEUTROPHILS ABSOLUTE AUTO 13.38 K/mm3 (1.96-9.15); NEUTROPHILS PERCENT AUTO 86 % (41-73); Platelet Count 229 K/mm3 (150-400); RDW Coefficient Variation 16.4 % (11.7-14.2); RDW Standard Deviation 52.7 fL (35.1-46.3); Red Blood Cell Count 2.55 M/mm3 (3.80-5.20); White Blood Cell Count 15.56 K/mm3 (4.00-11.30)
[2024-06-07 03:54] LABS: Bun/Creatinine Ratio 23.1 (12.0-20.0); Calcium, Blood 9.1 mg/dL (8.5-10.1); Creatinine, Blood 1.43 mg/dL (0.40-1.00); Potassium, Blood 4.1 mmol/L (3.5-5.5)
--- NOTE | 2024-06-07 05:00 | NUR ---
SHIFT SUMMARY. AOX4, PLEASANT, COOPERATIVE WITH CARE, CALLS APPROPRIATELY, ABLE TO MAKE NEEDS KNOWN. HAS BEEN ABLE TO REST COMFORTABLY THROUGHOUT MOST OF SHIFT. VITALS STABLE, BP SOFT BUT STABLE. PT HAS MAINTAINED ADEQUATE SATURATION THROUGHOUT SHIFT ON 2-3 L O2 VIA NC. STEADY SBA TO BATHROOM. SINCE DELUNA REMOVAL, PT HAS VOIDED 3 TIMES. MOST RECENTLY BLADDER SCANNED THIS MORNING SHOWING BLADDER VOLUME OF 385 MLS. SHORTLY THEREAFTER ENCOURAGED PT TO ATTEMPT TO VOID, PT WAS ABLE TO URINATE 300 MLS. PT HAS DENIED PAIN THROUGHOUT SHIFT. Q2 HOUR REPOSITIONS. BED LOCKED IN LOWEST POSITION. CALL LIGHT LEFT WITHIN REACH. CONTINUING TO MONITOR.
[2024-06-07] MEDS ORDERED: NS 250 ML IV PRN (08:00)
[2024-06-07 14:46] LABS: Hematocrit 28.6 % (33.0-51.0)
[2024-06-07] MEDS ORDERED: OxyCODONE HCL 5 MG TAB PO PRN (15:10)
--- NOTE | 2024-06-07 17:59 | NUR ---
SHIFT SUMMARY THE PT IS A&OX4, SBA IN THE ROOM FOR LINE MANAGEMENT, AND CAN MAKE HER NEEDS KNOWN. SHE IS BETWEEN 1-2L NC TO MAINTAIN SP02 >90%. THIS IS THE PT S BASELINE. SHE IS MEDICAL W/O TELE AND HER VITAL SIGNS HAVE BEEN STABLE. THE PT RECEIVED ONE UNIT OF PACKED RED BLOOD CELLS D/T HGB 6.9 THIS MORNING. THE ONLY BLEEDING NOTED IS FROM HEPARIN INJECTIONS ON THE PT S ABD FROM YESTERDAY. SCANT PARMINDER BLOOD NOTED. THE PT HAS HAD SOME ANXIETY THIS MORNING BECAUSE SHE NEVER HAD A BLOOD TRANSFUSION BEFORE, ANXIETY HAS SUBSIDED. DR. CABRALES CAME TO BEDSIDE AND FILLED OUT A POLST WITH THE PT AND THE DAUGHTER. THE PT REMAINS FULL CODE BUT DOES NOT WANT FEEDING TUBES OR A TRACHE. NO ACUTE EVENTS THIS SHIFT. SEE NOTES FOR ANY UPDATES.
--- NOTE | 2024-06-07 21:12 | NUR ---
ASSUMPTION OF CARE AFTER ASSUMING CARE FROM ELLEN RN, THIS RN ASSUMED CARE AT APPROX 1915. PATIENT ALERT AND ORIENTED X4. PERRLA. MOVES ALL EXTREMITIES EQUALLY. COMMUNICATES NEEDS EFFECTIVELY. IS MEDICAL STATUS WITHOUT TELEMETRY. DENIES CHEST PAIN, PRESSURE. BP STABLE, SBP 140s. ON BASELINE 2L VIA NC, SATs >90%. RR EVEN, UNLABORED. DENIES SHORTNESS OF BREATH. IS A SBA WITH MOBILITY. CALLS APPROPRIATELY FOR ASSIST. REPOSITIONS HERSELF INDEPENDENTLY IN BED. CALL LIGHT IN REACH.
--- NOTE | 2024-06-07 22:50 | NUR ---
MD JUAREZ CONTACTED PATIENT DOES NOT HAVE ORDERS FOR MORNING LABS. TO REVIEW CHART AND PLACE ORDERS.
[2024-06-08 03:27] VITALS: BP 125/69
[2024-06-08 04:16] LABS: BASOPHILS ABSOLUTE AUTO 0.04 K/mm3 (0.00-0.23); BASOPHILS PERCENT AUTO 0 % (0-2); EOSINOPHILS ABSOLUTE AUTO 0.09 K/mm3 (0.00-0.68); EOSINOPHILS PERCENT AUTO 1 % (0-6); Hematocrit 27.6 % (33.0-51.0); Hemoglobin 8.6 g/dL (11.5-16.0); IMMATURE GRAN ABSOLUTE AUTO 0.03 K/mm3 (0.00-0.10); IMMATURE GRAN PERCENT AUTO 0 % (0-1); LYMPHOCYTES PERCENT AUTO 21 % (21-46); MONOCYTES ABSOLUTE AUTO 0.73 K/mm3 (0.16-1.47); MONOCYTES PERCENT AUTO 6 % (4-13); Mean Corpuscular HGB 27.7 pg (26.0-34.0); Mean Corpuscular HGB Conc 31.2 g/dL (31.5-36.5); Mean Corpuscular Volume 89 fL (80-100); Mean Platelet Volume 11.7 fL (9.1-12.4); NEUTROPHILS ABSOLUTE AUTO 8.83 K/mm3 (1.96-9.15); NEUTROPHILS PERCENT AUTO 72 % (41-73); Platelet Count 227 K/mm3 (150-400); RDW Coefficient Variation 16.1 % (11.7-14.2); Red Blood Cell Count 3.11 M/mm3 (3.80-5.20); White Blood Cell Count 12.22 K/mm3 (4.00-11.30)
[2024-06-08 04:37] LABS: Albumin, Blood 2.6 g/dL (3.4-5.0); Albumin/Globulin Ratio 0.7 (0.8-1.8); Bilirubin, Total 0.5 mg/dL (0.1-1.0); Bun/Creatinine Ratio 23.4 (12.0-20.0); Calcium, Blood 8.8 mg/dL (8.5-10.1); Creatinine, Blood 1.58 mg/dL (0.40-1.00); Globulin, Blood 3.8 g/dL (2.2-4.0); Potassium, Blood 4.6 mmol/L (3.5-5.5); Total Protein, Blood 6.4 g/dL (6.4-8.2)
--- NOTE | 2024-06-08 04:49 | NUR ---
SHIFT SUMMARY NO ACUTE EVENTS OVERNIGHT. PATIENT SLEPT T/O, EASILY AROUSABLE WITH VERBAL STIMULI. VSS. SBP 120s-140s. MAP >65. DENIES CHEST PAIN, PRESSURE. REMAINS ON BASELINE 2L VIA NC, SATs >90%. RR EVEN, UNLABORED. DENIES SHORTNESS OF BREATH WITH MOBILITY. UP TO RESTROOM WITH SBA. VOIDING. X1 BM THIS SHIFT. REPOSITIONS HERSELF WITH MINIMAL TO NO ASSIST FROM STAFF. CALL LIGHT IN REACH. WILL CONTINUE TO MONITOR AND REPORT TO ONCOMING RN.
[2024-06-08 08:14] VITALS: BP 158/77
[2024-06-08] MEDS ORDERED: Cefepime HCl 1,000 MG in NS 100 ML IV SCH (09:00)
[2024-06-08 15:03] VITALS: BP 148/89
--- NOTE | 2024-06-08 18:26 | NUR ---
SHIFT SUMMARY NO ACUTE CHANGES THIS SHIFT. PT A&0 X 4, ABLE TO MAKE NEEDS KNOWN, OBEY COMMANDS. PT VSS. PT SBA TO BRP, STEADY ON FEET. HR 70'S, CAP REFILL LESS THAN 3, BP ELVATED AND MEDICATED PER EMAR. LUNGS HAVE FINE CRAKELS BUL AND COARSE CRAKLES BLL, SPO2 GREATER THAN 95% ON 2 L NC, SOB WITH ACTIVTY. PT REPORTED BURINING WHILE VOIDING AND FILLING LIKE HER BLADDER WAS STILL FULL. HAS WOUNDS ON HER COCCXYS AND A NEW WOUND TO THE LEFT BUTTOX, MEPELEX PLACED ON LEFT BUTTOX, PHOTO ADDED TO CHART. PT REPORTED PAIN IN LOWER BACK @ APROX 1700, MEDICATED PER EMAR. FAMILY AT BEDSIDE THIS AFTERNOON. DR CABRALES ROUNDED ON PT @0904 AND ORDRED BLADDER SCANNING POST VOID. DR. CABRALES NOTIFED OF POST VOID RETENTION OF 418 AND PLACED IN NEW ORDERS.
[2024-06-08 19:24] VITALS: BP 157/66
--- NOTE | 2024-06-08 20:21 | NUR ---
ASSUMPTION OF CARE AFTER RECEIVING REPORT FROM VAIBHAV RN, THIS RN ASSUMED CARE AT APPROX 1915. PATIENT ALERT AND ORIENTED X4. PLEASANT, COOPERATIVE WITH CARE AND RECEPTIVE TO EDUCATION. MOVES ALL EXTREMITIES EQUALLY W/ BASELINE UPPER ARM TREMOR NOTED. PERRLA. PATIENT REPORTS 4/10 LOWER BACK PAIN - MEDICATED PER EMAR WITH OXYCODONE PRIOR TO ASSUMPTION OF CARE. IS MEDICAL STATUS WITHOUT TELEMETRY. VSS. SBP 150s. DENIES CHEST PAIN, PRESSURE. PO METOPROLOL ADMINISTERED PER EMAR. ON BASELINE 2L VIA NC, SATs >90%. RR EVEN, UNLABORED AT REST. MILD SHORTNESS OF BREATH WITH MOBILITY. SBA WITH MOBILITY FOR LINE, DEVICE MANAGEMENT NEEDED. URINARY RETENTION POST VOID NOTED BY DAY RN. ORDER IN PLACE TO STRAIGHT CATH IF >350ML PRESENT POST VOID. PATIENT UP TO RESTROOM TO VOID THIS EVENING. BLADDER SCAN POST VOID 25ML. CALL LIGHT IN REACH.
--- NOTE | 2024-06-08 23:29 | NUR ---
REPORT GIVEN TO ACCEPTING [facility] TO ASSUME CARE ON MEDICAL FLOOR.
[2024-06-09] MEDS ORDERED: Ipratropium/Albuterol SulF 2.5-0.5MG/3 ML Amp INH PRN (03:40)
[2024-06-09 04:08] VITALS: BP 113/74
[2024-06-09 06:02] LABS: BASOPHILS ABSOLUTE AUTO 0.04 K/mm3 (0.00-0.23); BASOPHILS PERCENT AUTO 0 % (0-2); EOSINOPHILS ABSOLUTE AUTO 0.39 K/mm3 (0.00-0.68); EOSINOPHILS PERCENT AUTO 4 % (0-6); Hematocrit 28.4 % (33.0-51.0); Hemoglobin 8.6 g/dL (11.5-16.0); IMMATURE GRAN ABSOLUTE AUTO 0.03 K/mm3 (0.00-0.10); IMMATURE GRAN PERCENT AUTO 0 % (0-1); LYMPHOCYTES ABSOLUTE AUTO 2.62 K/mm3 (0.84-5.20); LYMPHOCYTES PERCENT AUTO 27 % (21-46); MONOCYTES ABSOLUTE AUTO 0.69 K/mm3 (0.16-1.47); MONOCYTES PERCENT AUTO 7 % (4-13); Mean Corpuscular HGB 27.1 pg (26.0-34.0); Mean Corpuscular HGB Conc 30.3 g/dL (31.5-36.5); Mean Corpuscular Volume 90 fL (80-100); Mean Platelet Volume 11.6 fL (9.1-12.4); NEUTROPHILS ABSOLUTE AUTO 6.12 K/mm3 (1.96-9.15); NEUTROPHILS PERCENT AUTO 62 % (41-73); Platelet Count 223 K/mm3 (150-400); RDW Coefficient Variation 15.5 % (11.7-14.2); RDW Standard Deviation 50.4 fL (35.1-46.3); Red Blood Cell Count 3.17 M/mm3 (3.80-5.20); White Blood Cell Count 9.89 K/mm3 (4.00-11.30)
--- NOTE | 2024-06-09 06:07 | NUR ---
SHIFT SUMMARY PT A&OX4 AND ANSWERS QUESTIONS APPROPRIATELY. PT TRANSFERRED FROM PCU 2 TO THIS FLOOR AND ARRIVED AT 2340. PT ORIENTED TO ROOM AND UNIT. PT ORIENTED TO CALL LIGHT. VSS, NO COMPLAINTS OF CP/PRESSURE OR SOB. PT SPENT MOST OF SHIFT IN BED WITH EYES CLOSED AND RESPIRATIONS EVEN AND UNLABORED. PT ABLE TO VOID VIA SBA TO THE BR. PT BLADDER SCANNED AFTER URINATING AND BLADDER SCAN SHOWED A POST RESIDUAL VOLUME LESS THAN 350 ML AND NO STRAIGHT CATH REQUIRED. NO ACUTE EVENTS AT THIS TIME. PT REPOSITIONED INDEPENDENTLY. PT LEFT IN A POSITION OF SAFETY WITH FALL PRECAUTIONS IN PLACE AND CALL LIGHT IN REACH.
[2024-06-09 06:40] LABS: Calcium, Blood 8.7 mg/dL (8.5-10.1); Creatinine, Blood 1.32 mg/dL (0.40-1.00); Potassium, Blood 4.6 mmol/L (3.5-5.5)
[2024-06-09 07:39] VITALS: BP 148/59
[2024-06-09] MEDS ORDERED: Furosemide 20 MG Tab PO SCH (09:00)
[2024-06-09] MEDS ORDERED: Cefepime HCl 2,000 MG in NS 100 ML IV SCH (09:00)
[2024-06-09 16:32] VITALS: BP 174/71
[2024-06-09 18:05] VITALS: BP 170/53
--- NOTE | 2024-06-09 18:13 | NUR ---
SHIFT SUMMARY PT IS A&0X4. PT ADMITTED DUE TO PNEUMONIA. PT REPORTS NO CHEST DISCOMFORT. PT REPORTS SOME SOB WITH EXERTION. PT HAS OCCASIONAL COUGH, PT REPORTS COUGH BEING PRODUCTIVE. D/C IV. PT ON ORAL ANTIBIOTICS AND MEDS. PT REPORTS CHRONIC LOWER BACK, MANAGED PER EMAR. PT DAUGHTER WAS AT BEDSIDE THIS MORNING. PT HAS SOME POST VOID RESIDUALS. ORDERS IN PLACE FOR PT TO STRAIGHT CATH AT HOME. PT REPORTED NOT WANTING TO STRAIGHT CATH TODAY WHEN DAUGHTER IS NOT PRESENT. PLAN IS TO EDUCATE DAUGHTER AND PT BOTH TOMORROW ABOUT STRAIGHT CATHING AT HOME. PT WORKED WITH PHYSICAL THERAPY TODAY. PT ON 2L O2 VIA N/C AND IT IS HOW MUCH SHE USES AT HOME. CALL LIGHT IN REACH.
[2024-06-09 20:09] VITALS: BP 162/50
[2024-06-09] MEDS ORDERED: Cefpodoxime Proxetil 200 MG Tab PO SCH (21:00)
[2024-06-10 02:39] VITALS: BP 145/56
--- NOTE | 2024-06-10 04:14 | NUR ---
SHIFT SUMMARY PATIENT REPORTED SHE TYPICALLY VOIDS 2-3 TIMES TO FEEL COMPLETE. FIRST VOID OF 500 mL AND BLADDER SCAN 532. REFUSED STRAIGHT CATH FOR POST VOID >350 mL REPORTING WILL VOID AGAIN. SECOND VOID 400 mL AND BLADDER SCAN 300 mL. REPORTS WILL HAVE TO VOID A THIRD TIME. ALERT AND ORIENTED AND INDEPENDENT IN ROOM. DENIES CHEST PAIN, SOB, AND N/V. REPORTED LOWER BACK PAIN AND OXYCODONE 10 MG GIVEN PER EMAR. ON 2L O2 NC BASELINE. NO IV ACCESS. WATCHED TV MOST OF THE SHIFT. CALL LIGHT IN REACH. BED IN LOWEST POSITION. WILL CONTINUE TO MONITOR UNTIL DAY SHIFT NURSE ASSUMES CARE.
[2024-06-10 07:23] VITALS: BP 138/57
[2024-06-10] MEDS ORDERED: MELATONIN5 M1 PO (13:19)
[2024-06-10] MEDS ORDERED: CEFP200 PO (13:19)
[2024-06-10] MEDS ORDERED: FURO20 PO (13:19)
[2024-06-10] MEDS ORDERED: Acetaminophen650 M1 PO (13:19)
[2024-06-10] MEDS ORDERED: VISBIOME 112.51 EACH PO (13:20)
--- NOTE | 2024-06-10 14:18 | NUR ---
DISCHARGE NOTE PT DISCHARGED TO HOME WITH HOME HEALTH. PICKED UP BY HER DAUGHTER. NO IV, HOME O2 WITH HER. DISCHARGE MEDICATIONS FAXED TO THE PHARMACY OF HER CHOICE. DISCHARGE EDUCATION AND INFORMATION PROVIDED.
== END 2024-06-10 14:04 | disposition home health service (06) | DRG 871 ==
LOC: ER 19:29 → ERHOLD 06-05 02:37 → PCU 06-05 02:37 → MEDS 06-08 23:39
PROVIDERS: Emergency Medicine; Family Medicine; Internal Medicine; Student in an Organized Health Care Education/Training Program; ADMIT Internal Medicine
PROC: 5A09357 Assistance with Respiratory Ventilation, Less than 24 Consecutive Hours, Continuous Positive Airway Pressure (ICD-10-PCS; principal; 2024-06-05)
PROC: 3E03329 Introduction of Other Anti-infective into Peripheral Vein, Percutaneous Approach (ICD-10-PCS; 2024-06-05)
PROC: 30233N1 Transfusion of Nonautologous Red Blood Cells into Peripheral Vein, Percutaneous Approach (ICD-10-PCS; 2024-06-07)
DX: A41.9 Sepsis, unspecified organism (principal); I50.33 Acute on chronic diastolic (congestive) heart failure; J18.9 Pneumonia, unspecified organism; J96.21 Acute and chronic respiratory failure with hypoxia; J69.0 Pneumonitis due to inhalation of food and vomit; J44.0 Chronic obstructive pulmonary disease with (acute) lower respiratory infection; J44.1 Chronic obstructive pulmonary disease with (acute) exacerbation; R65.20 Severe sepsis without septic shock; M54.9 Dorsalgia, unspecified; R33.9 Retention of urine, unspecified; G89.29 Other chronic pain; D50.9 Iron deficiency anemia, unspecified; I11.0 Hypertensive heart disease with heart failure; E87.6 Hypokalemia; F32.9 Major depressive disorder, single episode, unspecified; E83.42 Hypomagnesemia; E83.39 Other disorders of phosphorus metabolism; Z99.81 Dependence on supplemental oxygen; Z88.0 Allergy status to penicillin; Z88.1 Allergy status to other antibiotic agents; I25.2 Old myocardial infarction; Z87.440 Personal history of urinary (tract) infections; Z90.49 Acquired absence of other specified parts of digestive tract; Z87.81 Personal history of (healed) traumatic fracture; Z87.891 Personal history of nicotine dependence
CPT/HCPCS: 0241U; 36415; 36430; 51702; 71046; 71260; 74230; 80048; 80053; 80069; 81001; 82803; 83605; 83735; 83880; 84145; 84484; 85014; 85018; 85025; 85379; 86850; 86900; 86901; 86923; 87040; 87086; 92526; 92610; 92611; 93005; 93010; 93306; 94640; 94660; 94664; 94760; 94762; 96361-59; 96374-59; 97110; 97161; 97165; 97530; 97535; 99285-25; A9270; J0456; J0692; J0696; J1644; J1940; J2919; J3370; J3475; J7030; J7050; J7060; P9016; Q9967

== ENCOUNTER 2024-06-25 13:50 | Inpatient (IN) | payer MEDICARE, OTHER ==
[~2024-06-25] VITALS: Ht 157.5 cm; Wt 61.2 kg
[~2024-06-25 13:50] MED LIST changes: +Acetaminophen650 M1 PO; +CEFP200 PO; +FURO20 PO; +MELATONIN5 M1 PO; +VISBIOME 112.51 EACH PO
[2024-06-25 15:05] LABS: BASOPHILS ABSOLUTE AUTO 0.03 K/mm3 (0.00-0.23); BASOPHILS PERCENT AUTO 0 % (0-2); EOSINOPHILS ABSOLUTE AUTO 0.21 K/mm3 (0.00-0.68); EOSINOPHILS PERCENT AUTO 3 % (0-6); Hematocrit 28.1 % (33.0-51.0); Hemoglobin 8.5 g/dL (11.5-16.0); IMMATURE GRAN ABSOLUTE AUTO 0.01 K/mm3 (0.00-0.10); IMMATURE GRAN PERCENT AUTO 0 % (0-1); LYMPHOCYTES ABSOLUTE AUTO 1.32 K/mm3 (0.84-5.20); LYMPHOCYTES PERCENT AUTO 16 % (21-46); MONOCYTES ABSOLUTE AUTO 0.65 K/mm3 (0.16-1.47); MONOCYTES PERCENT AUTO 8 % (4-13); Mean Corpuscular HGB 27.1 pg (26.0-34.0); Mean Corpuscular HGB Conc 30.2 g/dL (31.5-36.5); Mean Corpuscular Volume 90 fL (80-100); NEUTROPHILS ABSOLUTE AUTO 5.92 K/mm3 (1.96-9.15); NEUTROPHILS PERCENT AUTO 73 % (41-73); Platelet Count 221 K/mm3 (150-400); RDW Coefficient Variation 15.2 % (11.7-14.2); RDW Standard Deviation 49.8 fL (35.1-46.3); Red Blood Cell Count 3.14 M/mm3 (3.80-5.20); White Blood Cell Count 8.14 K/mm3 (4.00-11.30)
[2024-06-25] MEDS ORDERED: Ipratropium/Albuterol SulF 2.5-0.5MG/3 ML Amp INH ONE (15:15)
[2024-06-25] MEDS ORDERED: MethylPREDNISolone Sod Succ 125 MG Vial IV ONE (15:15)
[2024-06-25 15:36] LABS: Albumin, Blood 3.2 g/dL (3.4-5.0); Albumin/Globulin Ratio 0.8 (0.8-1.8); Bilirubin, Total 0.4 mg/dL (0.1-1.0); Bun/Creatinine Ratio 18.5 (12.0-20.0); Calcium, Blood 9.2 mg/dL (8.5-10.1); Creatinine, Blood 1.24 mg/dL (0.40-1.00); Globulin, Blood 4.2 g/dL (2.2-4.0); Potassium, Blood 3.8 mmol/L (3.5-5.5); Total Protein, Blood 7.4 g/dL (6.4-8.2)
[2024-06-25 16:29] LABS: Influenza A, PCR NEGATIVE (NEGATIVE); Influenza B, PCR NEGATIVE (NEGATIVE); Resp Syncytial Virus, PCR NEGATIVE (NEGATIVE); SARS-Cov-2 (COVID-19) PCR, MMC NEGATIVE (NEGATIVE)
[2024-06-25] MEDS ORDERED: Ipratropium/Albuterol SulF 2.5-0.5MG/3 ML Amp INH SCH (18:55)
[2024-06-25] MEDS ORDERED: FLU VACC TS2024-25(6MOS UP)/PF 45 MCG/0.5 ML SYRINGE IM SCH (18:55)
[2024-06-25] MEDS ORDERED: Ondansetron HCl 2 MG / ML 2ML Vial IV PRN (18:55)
[2024-06-25] MEDS ORDERED: Albuterol 2.5 MG/3 ML VIAL INH PRN (18:55)
[2024-06-25] MEDS ORDERED: TiZANidine HCl 4 MG Tab PO PRN (19:00)
[2024-06-25] MEDS ORDERED: Furosemide 10 MG/ML 4ML Vial IV SCH (19:00)
[2024-06-25 19:44] LABS: Base Excess Venous 8.1 mmol/L; Bicarbonate Venous 30.7 mmol/L (24.0-30.0); PCO2 Venous 63.5 mmHg (38-42); pH Blood Venous 7.34 (7.34-7.37)
[2024-06-25] MEDS ORDERED: Azithromycin 250 MG Tab PO SCH (20:00)
[2024-06-25] MEDS ORDERED: AmLODIPine Besylate 5 MG Tab PO SCH (21:00)
[2024-06-25] MEDS ORDERED: buprenorphine HCL 2 MG TAB.SUBL SL SCH (21:00)
[2024-06-25] MEDS ORDERED: Pregabalin 75 MG Cap PO SCH (21:00)
[2024-06-25 21:23] VITALS: BP 138/54
[2024-06-26] MEDS ORDERED: Acetaminophen 325 MG TABLET PO PRN (02:15)
[2024-06-26] MEDS ORDERED: OxyCODONE HCL 5 MG TAB PO PRN (02:15)
[2024-06-26 03:31] VITALS: BP 118/56
--- NOTE | 2024-06-26 04:50 | NUR ---
SHIFT SUMMARY PATIENT IS ALERT AND ORIENTED. PATIENT HAS HAD ACUTE EVENTS THIS SHIFT. PATIENT IS ON 2.5L NS. PATIENT HAS COMPLAINED OF PAIN AND MEDICATED PER EMAR. PATIENT HAS HAD NO COMPLAINTS OF SOB, NAUSEA, OR VOMITTING THIS SHIFT. BED IN LOCKED AND LOWEST POSITION. CALL LIGHT IN PLACE. WILL MONITOR UNTIL SHIFT CHANGE.
[2024-06-26 05:47] LABS: Hematocrit 26.2 % (33.0-51.0); Mean Corpuscular HGB 27.6 pg (26.0-34.0); Mean Corpuscular HGB Conc 30.5 g/dL (31.5-36.5); Mean Corpuscular Volume 90 fL (80-100); Mean Platelet Volume 11.7 fL (9.1-12.4); Platelet Count 215 K/mm3 (150-400); RDW Coefficient Variation 15.1 % (11.7-14.2); White Blood Cell Count 6.33 K/mm3 (4.00-11.30)
[2024-06-26 06:08] LABS: Bun/Creatinine Ratio 24.6 (12.0-20.0); Calcium, Blood 9.5 mg/dL (8.5-10.1); Creatinine, Blood 1.22 mg/dL (0.40-1.00); Magnesium, Blood 1.7 mg/dL (1.6-2.4); Potassium, Blood 4.1 mmol/L (3.5-5.5)
[2024-06-26 07:34] VITALS: BP 134/48
[2024-06-26] MEDS ORDERED: Citalopram Hydrobromide 20 MG Tab PO SCH (09:00)
[2024-06-26] MEDS ORDERED: Aspirin 81 MG Chew PO SCH (09:00)
[2024-06-26] MEDS ORDERED: PredniSONE 20 MG Tab PO SCH (09:00)
[2024-06-26] MEDS ORDERED: Heparin Sodium,Porcine 5,000 UNIT/0.5 ML SDV SC SCH (09:00)
[2024-06-26] MEDS ORDERED: BREZTRI INHALER INH SCH (10:10)
[2024-06-26] MEDS ORDERED: Ipratropium/Albuterol SulF 2.5-0.5MG/3 ML Amp INH PRN (10:10)
[2024-06-26] MEDS ORDERED: ESZO2 PO (11:03)
[2024-06-26] MEDS ORDERED: METO50ER PO (12:28)
[2024-06-26] MEDS ORDERED: Morphine Sulfate 20 MG/1ML 1 ML Oral Syringe PO PRN (13:15)
[2024-06-26 15:07] VITALS: BP 161/60
--- NOTE | 2024-06-26 17:21 | NUR ---
MET WITH PATIENT AND FAMILY. WE DISCUSSED POLST AND CODE STATUS. SHE WOULD LIKE TO REMAIN A FULL CODE AT THIS TIME. WE HAD AN INDEPTH CONVERSATION ABOUT WHAT A CODE ENTAILS. PATIENT HAS PREFORMED CPR BEFORE AND UNDERSTANDS, SAM ARE TRAINED IN CPR. 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 PROVIDED INFORMATION ON BOTH. FAMILY WOULD LIKE TO START GETTING THINGS IN PLACE UNDERSTANDING THAT [facility] COULD DECLINE AND THEY WANT TO BE PREPARED. PROVIDED CONSIDERING COMFORT CARE AND HARD CHOICES FOR LOVING PEOPLE
--- NOTE | 2024-06-26 19:25 | NUR ---
NO ACUTE CHANGES THIS SHIFT, PT IS ON 2-3L NC WHICH IS HER BASELINE. PT DID NOT C/O OR APPEAR TO HAVE HAD ANY AIR HUNGER THIS SHIFT. SHE IS ALERT AND ORIENTED X4, ABLE TO MAKE NEEDS KNOWN, SBA WITH FWW TO BATHROOM. MEDICATED FOR PAIN PER EMAR. BLE EDEMA +1, ELEVATED WITH PILLOWS. FAMILY IS CURRENTLY AT BEDSIDE
[2024-06-26 20:40] VITALS: BP 135/57
[2024-06-27 04:25] VITALS: BP 129/60
--- NOTE | 2024-06-27 04:45 | NUR ---
SHIFT SUMMARY PATIENT IS ALERT AND ORIENTED. PATIENT HAS HAD NO ACUTE EVENTS THIS SHIFT. VITAL SIGNS REVIEWED. PATIENT HAS BEEN MEDICATED FOR PAIN THIS SHIFT. PATIENT HAS HAD NO COMPLAINTS OF SOB, NAUSEA OR VOMITTING THIS SHIFT. PATIENT HAS BEEN ON 2.5L NC ALL SHIFT. BED IN LOCKED AND LOWEST POSITION. CALL LIGHT IN PLACE. WILL MONITOR UNTIL SHIFT CHANGE.
[2024-06-27 07:33] VITALS: BP 133/67
--- NOTE | 2024-06-27 09:00 | NUR ---
Pt laying in bed watching tv, a/ox4, pleasant and cooperative with care, follows commands well, reports back pain at 8/10 medicated per orders, lungs are clear in upper navas fine crackles in bases, resp even and unlabored, no cough noted, hrr, tele in place running sr in 80's, trace edema noted, ppp faint, cap refill<3 sec, vs stable, afebrile, piv to rha and rac, sites are clear and patent, btx4, abd flat soft nontender, voids without diff, skin c/w/d, maew, ambulates with walker, gait is steady, mic, call light in reach.
[2024-06-27] MEDS ORDERED: Metolazone 2.5 MG Tab PO ONE (12:00)
--- NOTE | 2024-06-27 12:41 | NUR ---
pt requesting pain meds, too soon so was ok with a muscle relaxant. this was given. call light in reach.
[2024-06-27 15:53] VITALS: BP 133/65
--- NOTE | 2024-06-27 18:20 | NUR ---
pt has had an uneventful day, watching tv, ambulates to the bathroom with walker without diff, call light in reach.
[2024-06-27 20:05] VITALS: BP 159/65
[2024-06-28 02:09] VITALS: BP 152/71
--- NOTE | 2024-06-28 04:32 | NUR ---
SHIFT SUMMARY PATIENT HAD NO ACUTE CHANGES. AXOX 4 AND 1 ASSIST TO FWW TO BR. DENIES CHEST PAIN, SOB, AND N/V. VSS/AFEBRILE. REPORTED BACK PAIN X ONE AND OXYCODONE 10 MG GIVEN PER EMAR. PIV INTACT. ON 2.5 L O2 NC AND BASELINE. COOPERATIVE WITH CARE. CALL LIGHT IN REACH. BED IN LOWEST POSITION. WILL CONTINUE TO MONITOR UNTIL DAY SHIFT NURSE ASSUMES CARE.
[2024-06-28 05:12] LABS: BASOPHILS ABSOLUTE AUTO 0.02 K/mm3 (0.00-0.23); BASOPHILS PERCENT AUTO 0 % (0-2); EOSINOPHILS ABSOLUTE AUTO 0.01 K/mm3 (0.00-0.68); EOSINOPHILS PERCENT AUTO 0 % (0-6); Hematocrit 28.3 % (33.0-51.0); Hemoglobin 8.8 g/dL (11.5-16.0); IMMATURE GRAN ABSOLUTE AUTO 0.13 K/mm3 (0.00-0.10); IMMATURE GRAN PERCENT AUTO 1 % (0-1); LYMPHOCYTES ABSOLUTE AUTO 2.59 K/mm3 (0.84-5.20); LYMPHOCYTES PERCENT AUTO 19 % (21-46); MONOCYTES ABSOLUTE AUTO 0.88 K/mm3 (0.16-1.47); MONOCYTES PERCENT AUTO 6 % (4-13); Mean Corpuscular HGB 27.3 pg (26.0-34.0); Mean Corpuscular HGB Conc 31.1 g/dL (31.5-36.5); Mean Corpuscular Volume 88 fL (80-100); Mean Platelet Volume 11.6 fL (9.1-12.4); NEUTROPHILS ABSOLUTE AUTO 10.37 K/mm3 (1.96-9.15); NEUTROPHILS PERCENT AUTO 74 % (41-73); Platelet Count 253 K/mm3 (150-400); RDW Coefficient Variation 15.5 % (11.7-14.2); RDW Standard Deviation 50.7 fL (35.1-46.3); Red Blood Cell Count 3.22 M/mm3 (3.80-5.20)
[2024-06-28 05:51] LABS: Bun/Creatinine Ratio 34.1 (12.0-20.0); Calcium, Blood 9.4 mg/dL (8.5-10.1); Creatinine, Blood 1.29 mg/dL (0.40-1.00); Potassium, Blood 3.9 mmol/L (3.5-5.5)
[2024-06-28 07:47] VITALS: BP 147/60
[2024-06-28] MEDS ORDERED: Empagliflozin 10 MG TAB PO SCH (09:30)
[2024-06-28 15:09] VITALS: BP 163/70
--- NOTE | 2024-06-28 17:34 | NUR ---
SHIFT SUMMARY: PT A&O X4. PLEASANT AND COOPERATIVE WITH CARE. PT MOSTLY INDEPENDENT IN ROOM. WILL CALL FOR ASSIST WHEN NEEDED. PT CURRENTLY ON 2.5L VIA NC. PT HAS FEW FAINT CRACKLES IN LOWER LOBES BUT STATES HER BREATHING FEELS MUCH BETTER TODAY. REPORTED 9/10 BACK AND HEAD PAIN. MEDICATED WITH PRN MUSCLE RELAXER AND TYLENOL. PT WORKED WITH PHYSICAL THERAPY RECOMMENDING HOME HEALTH. PT LIKELY TO D/C TOMORROW. CALL LIGHT IN REACH. BED IN LOWEST POSITION.
[2024-06-28 19:27] VITALS: BP 150/69
[2024-06-29 02:11] VITALS: BP 171/70
--- NOTE | 2024-06-29 04:08 | NUR ---
SHIFT SUMMARY PATIENT HAD NO ACUTE CHANGES. AXO X 4 AND INDEPENDENT IN ROOM. DENIES CHEST PAIN, SOB, AND N/V. REPORTED BACK PAIN AND NUNEZ X ONE. ZANAFLEX AND TYLENOL GIVEN PER EMAR. ON 2.5 L O2 NC AND BASELINE. PIV INTACT. COOPERATIVE WITH CARE. CALL LIGHT IN REACH. BED IN LOWEST POSITION. WILL CONTINUE TO MONITOR UNTIL DAY SHIFT NURSE ASSUMES CARE.
[2024-06-29 05:22] LABS: BASOPHILS PERCENT AUTO 0 % (0-2); EOSINOPHILS ABSOLUTE AUTO 0.01 K/mm3 (0.00-0.68); EOSINOPHILS PERCENT AUTO 0 % (0-6); Hematocrit 28.9 % (33.0-51.0); Hemoglobin 9.1 g/dL (11.5-16.0); IMMATURE GRAN ABSOLUTE AUTO 0.07 K/mm3 (0.00-0.10); IMMATURE GRAN PERCENT AUTO 1 % (0-1); LYMPHOCYTES ABSOLUTE AUTO 2.16 K/mm3 (0.84-5.20); LYMPHOCYTES PERCENT AUTO 25 % (21-46); MONOCYTES ABSOLUTE AUTO 0.61 K/mm3 (0.16-1.47); MONOCYTES PERCENT AUTO 7 % (4-13); Mean Corpuscular HGB 27.3 pg (26.0-34.0); Mean Corpuscular HGB Conc 31.5 g/dL (31.5-36.5); Mean Corpuscular Volume 87 fL (80-100); Mean Platelet Volume 11.9 fL (9.1-12.4); NEUTROPHILS ABSOLUTE AUTO 5.67 K/mm3 (1.96-9.15); NEUTROPHILS PERCENT AUTO 67 % (41-73); Platelet Count 214 K/mm3 (150-400); RDW Coefficient Variation 15.1 % (11.7-14.2); RDW Standard Deviation 48.2 fL (35.1-46.3); Red Blood Cell Count 3.33 M/mm3 (3.80-5.20); White Blood Cell Count 8.52 K/mm3 (4.00-11.30)
[2024-06-29 05:55] LABS: Bun/Creatinine Ratio 33.6 (12.0-20.0); Calcium, Blood 9.8 mg/dL (8.5-10.1); Creatinine, Blood 1.37 mg/dL (0.40-1.00); Potassium, Blood 3.9 mmol/L (3.5-5.5)
[2024-06-29 07:34] VITALS: BP 143/60
[2024-06-29] MEDS ORDERED: JARDIANCE10 MG PO (12:04)
== END 2024-06-29 13:28 | disposition home health service (06) | DRG 291 ==
LOC: ER 13:50 → ERHOLD 13:51 → MEDS 13:51 → ENPENDDIS 06-29 10:52 → MEDS 06-29 13:28
PROVIDERS: Family Medicine; Internal Medicine; Nurse Practitioner Acute Care; Student in an Organized Health Care Education/Training Program; ADMIT Student in an Organized Health Care Education/Training Program
DX: I13.0 Hypertensive heart and chronic kidney disease with heart failure and stage 1 through stage 4 chronic kidney disease, or unspecified chronic kidney disease (principal); I50.33 Acute on chronic diastolic (congestive) heart failure; J96.21 Acute and chronic respiratory failure with hypoxia; J44.1 Chronic obstructive pulmonary disease with (acute) exacerbation; F32.A Depression, unspecified; N18.30 Chronic kidney disease, stage 3 unspecified; M54.9 Dorsalgia, unspecified; F41.9 Anxiety disorder, unspecified; D63.1 Anemia in chronic kidney disease; Z99.81 Dependence on supplemental oxygen; Z88.1 Allergy status to other antibiotic agents; Z88.0 Allergy status to penicillin; Z79.82 Long term (current) use of aspirin; Z79.899 Other long term (current) drug therapy; Z90.49 Acquired absence of other specified parts of digestive tract; Z87.891 Personal history of nicotine dependence
CPT/HCPCS: 0241U; 36415; 71046; 71260; 80048; 80053; 82803; 83735; 83880; 84484; 85025; 85027; 85379; 93005; 93010; 93971; 94640; 94664; 94762; 96372; 96374-59; 96375-59; 96376; 97110; 97116; 97161; 97530; 99285-25; A9270; G0378; J1644; J1940; J2919; J7512; Q9967

== ENCOUNTER 2024-07-11 20:49 | Inpatient (IN) | payer MEDICARE, OTHER ==
[~2024-07-11] VITALS: Ht 160 cm; Wt 58.3 kg
[~2024-07-11 20:49] MED LIST changes: +JARDIANCE10 MG PO
[2024-07-11] MEDS ORDERED: NS 1,000 ML IV SCH (21:25)
[2024-07-11 21:38] LABS: BASOPHILS ABSOLUTE AUTO 0.06 K/mm3 (0.00-0.23); BASOPHILS PERCENT AUTO 0 % (0-2); EOSINOPHILS ABSOLUTE AUTO 0.36 K/mm3 (0.00-0.68); EOSINOPHILS PERCENT AUTO 2 % (0-6); Hematocrit 31.6 % (33.0-51.0); Hemoglobin 9.7 g/dL (11.5-16.0); IMMATURE GRAN ABSOLUTE AUTO 0.08 K/mm3 (0.00-0.10); IMMATURE GRAN PERCENT AUTO 0 % (0-1); LYMPHOCYTES ABSOLUTE AUTO 0.94 K/mm3 (0.84-5.20); LYMPHOCYTES PERCENT AUTO 5 % (21-46); MONOCYTES ABSOLUTE AUTO 0.69 K/mm3 (0.16-1.47); MONOCYTES PERCENT AUTO 4 % (4-13); Mean Corpuscular HGB 26.8 pg (26.0-34.0); Mean Corpuscular HGB Conc 30.7 g/dL (31.5-36.5); Mean Corpuscular Volume 87 fL (80-100); Mean Platelet Volume 10.6 fL (9.1-12.4); NEUTROPHILS PERCENT AUTO 88 % (41-73); Platelet Count 275 K/mm3 (150-400); RDW Coefficient Variation 14.2 % (11.7-14.2); RDW Standard Deviation 45.6 fL (35.1-46.3); Red Blood Cell Count 3.62 M/mm3 (3.80-5.20); White Blood Cell Count 18.23 K/mm3 (4.00-11.30)
[2024-07-11 22:03] LABS: Source, Urine Straight Cath
[2024-07-11 22:07] LABS: Bilirubin, Urine Neg (Neg); Blood, Urine Neg (Neg); Glucose Qualitative, Urine 4+ (Neg); Ketones, Urine Neg (Neg); Leukocyte Esterase, Urine Neg (Neg); Nitrite, Urine Neg (Neg); Protein, Urine Neg (Neg); Specific Gravity, Urine 1.015 (1.003-1.022); Urobilinogen, Urine NORM (Normal)
[2024-07-11 22:12] LABS: Appearance, Urine Clear (Clear); Color, Urine Yellow (P-Yellow)
[2024-07-11 22:14] LABS: Albumin, Blood 3.2 g/dL (3.4-5.0); Albumin/Globulin Ratio 0.7 (0.8-1.8); Bilirubin, Total 0.3 mg/dL (0.1-1.0); Bun/Creatinine Ratio 15.9 (12.0-20.0); Calcium, Blood 8.9 mg/dL (8.5-10.1); Creatinine, Blood 1.45 mg/dL (0.40-1.00); Globulin, Blood 4.6 g/dL (2.2-4.0); Potassium, Blood 3.3 mmol/L (3.5-5.5); Thyroid Stimulating Hormone 1.78 uIU/mL (0.360-4.800); Total Protein, Blood 7.8 g/dL (6.4-8.2)
[2024-07-11 22:44] LABS: Influenza A, PCR NEGATIVE (NEGATIVE); Influenza B, PCR NEGATIVE (NEGATIVE); Resp Syncytial Virus, PCR NEGATIVE (NEGATIVE); SARS-Cov-2 (COVID-19) PCR, MMC NEGATIVE (NEGATIVE)
[2024-07-11] MEDS ORDERED: Azithromycin 500 MG in NS 250 ML IV ONE (23:00)
[2024-07-11] MEDS ORDERED: CefTRIAXone Sodium 1,000 MG in NS 50 ML IV ONE (23:00)
[2024-07-11 23:50] LABS: Base Excess Venous 6.4 mmol/L; Bicarbonate Venous 29.7 mmol/L (24.0-30.0); PCO2 Venous 44.1 mmHg (38-42); pH Blood Venous 7.45 (7.34-7.37)
[2024-07-12] MEDS ORDERED: FLU VACC TS2024-25(6MOS UP)/PF 45 MCG/0.5 ML SYRINGE IM ONE (00:45)
[2024-07-12 02:49] VITALS: BP 121/60
--- NOTE | 2024-07-12 04:22 | NUR ---
ADMIT NOTE/SHIFT SUMMARY REPORT WAS RECEIVED FROM THE ER NURSE. PT ARRIVED TO ROOM 301 AT 0230. SHE WAS UNRESPONSIVE IN THE ER BUT SOON SHE ARRIVED ON THE GURNEY TO THE FLOOR SHE WOKE UP AND ASKED ME WHERE SHE WAS AND WHAT HAD HAPPENED. I EXPLAINED TO HER WHAT HAD HAPPENED. SHE WAS ALERT ORIENTED X 4. SHE WAS ABLE TO ANSWER ALL QUESTIONS APPROPRIATELY. SHE STATED THAT SHE GETS LIKE THAT WHEN SHE HAS A INFECTION AND ASKED ME IF SHE HAD A UTI. I EXPLAINED TO HER THAT HER URINE CAME BACK CLEAR. SHE WAS PUT ON A TELEMETRY AND WAS AT NSR WITH A RATE OF 63. SHE WAS PUT ON 3L VIA NC WHICH SHE CURRENTLY USES AT HOME SATTING AT 100%. C/O CHRONIC BACK PAIN. SHES ASKING TO HAVE WATER BUT AT THIS TIME IS NPO. I WILL ASK MD FOR A ORDER FOR A DIET. SHE HAS A BRIEF AND A PUREWICK ON. SHE STATED SHES INCONTINENT AT TIMES. SHE LIVES WITH HER DAUGHTER. SHE HAS OLD HEALED SCABBED AREAS TO HER COCCYX AREA, HER TOP OF HER BILAT FEET ARE RED AND SWOLLEN RT MORE THEN LEFT AND THE RIGHT IS WARM TO TOUCH. SHE USES A WALKER AT HOME AND NORMALLY WALKS WITH SBA. SHE IS GETTING DOXYCYCLINE AND ROCEPHIN AN HAD 1ST DOSES IN THE ER. SHE HAD 2 FALLS AT HOME AND WAS WEAK AND LETHARGIC AND THATS WHAT BROUGHT HER IN. SHES CURRENTLY RESTING IN BED WITH CALL LIGHT IN REACH.
[2024-07-12 05:21] LABS: BASOPHILS ABSOLUTE AUTO 0.07 K/mm3 (0.00-0.23); BASOPHILS PERCENT AUTO 0 % (0-2); EOSINOPHILS ABSOLUTE AUTO 0.32 K/mm3 (0.00-0.68); EOSINOPHILS PERCENT AUTO 2 % (0-6); Hematocrit 24.4 % (33.0-51.0); Hemoglobin 7.4 g/dL (11.5-16.0); IMMATURE GRAN ABSOLUTE AUTO 0.06 K/mm3 (0.00-0.10); IMMATURE GRAN PERCENT AUTO 0 % (0-1); LYMPHOCYTES ABSOLUTE AUTO 1.92 K/mm3 (0.84-5.20); LYMPHOCYTES PERCENT AUTO 12 % (21-46); MONOCYTES ABSOLUTE AUTO 0.79 K/mm3 (0.16-1.47); MONOCYTES PERCENT AUTO 5 % (4-13); Mean Corpuscular HGB 26.9 pg (26.0-34.0); Mean Corpuscular HGB Conc 30.3 g/dL (31.5-36.5); Mean Corpuscular Volume 89 fL (80-100); Mean Platelet Volume 11.3 fL (9.1-12.4); NEUTROPHILS ABSOLUTE AUTO 12.46 K/mm3 (1.96-9.15); NEUTROPHILS PERCENT AUTO 80 % (41-73); Platelet Count 255 K/mm3 (150-400); RDW Coefficient Variation 14.5 % (11.7-14.2); RDW Standard Deviation 46.6 fL (35.1-46.3); Red Blood Cell Count 2.75 M/mm3 (3.80-5.20); White Blood Cell Count 15.62 K/mm3 (4.00-11.30)
[2024-07-12] MEDS ORDERED: Acetaminophen 325 MG TABLET PO PRN (05:30)
[2024-07-12 05:42] LABS: Albumin, Blood 2.7 g/dL (3.4-5.0); Albumin/Globulin Ratio 0.6 (0.8-1.8); Bilirubin, Total 0.3 mg/dL (0.1-1.0); Bun/Creatinine Ratio 14.5 (12.0-20.0); Calcium, Blood 8.9 mg/dL (8.5-10.1); Creatinine, Blood 1.38 mg/dL (0.40-1.00); Globulin, Blood 4.4 g/dL (2.2-4.0); Potassium, Blood 3.3 mmol/L (3.5-5.5); Total Protein, Blood 7.1 g/dL (6.4-8.2)
[2024-07-12] MEDS ORDERED: Zolpidem Tartrate 5 MG Tab PO PRN (06:15)
[2024-07-12] MEDS ORDERED: Potassium Chl 20MEQ/Water100ML 100 ML IV STA (06:17)
[2024-07-12] MEDS ORDERED: NS 250 ML IV PRN (07:40)
[2024-07-12 08:13] VITALS: BP 114/61
[2024-07-12] MEDS ORDERED: Empagliflozin 10 MG TAB PO SCH (09:00)
[2024-07-12] MEDS ORDERED: Aspirin 81 MG TabEC PO SCH (09:00)
[2024-07-12] MEDS ORDERED: Enoxaparin 40 MG/0.4 ML SYR SC SCH (09:00)
[2024-07-12] MEDS ORDERED: Citalopram Hydrobromide 20 MG Tab PO SCH (09:00)
[2024-07-12] MEDS ORDERED: AmLODIPine Besylate 5 MG Tab PO SCH (09:00)
[2024-07-12] MEDS ORDERED: Lactobacil 2-S.Thermo-Bifido 1 1 Cap PO SCH (09:00)
[2024-07-12] MEDS ORDERED: Misc. Inhaler INH SCH (09:00)
[2024-07-12] MEDS ORDERED: Furosemide 40 MG Tab PO SCH (09:00)
[2024-07-12] MEDS ORDERED: Doxycycline Hyclate 100 MG in Dextrose 5% 250 ML IV SCH (09:00)
[2024-07-12] MEDS ORDERED: buprenorphine HCL 2 MG TAB.SUBL SL PRN (11:40)
[2024-07-12 14:03] LABS: Adenovirus Not Detected (NOT DETECT); Bordetella pertussis Not Detected (NOT DETECT); Chlamydophila pneumoniae Not Detected (NOT DETECT); Coronavirus 229E Not Detected (NOT DETECT); Coronavirus HKU1 Not Detected (NOT DETECT); Coronavirus NL63 Not Detected (NOT DETECT); Coronavirus OC43 Not Detected (NOT DETECT); Human Metapneumovirus Not Detected (NOT DETECT); Human Rhinovirus/Enterovirus Not Detected (NOT DETECT); Influenza A/2009-H1 Not Detected (NOT DETECT); Influenza A/H1 Not Detected (NOT DETECT); Influenza A/H3 Not Detected (NOT DETECT); Influenza B Not Detected (NOT DETECT); Mycoplasma pneumoniae Not Detected (NOT DETECT); Parainfluenza Virus 1 Not Detected (NOT DETECT); Parainfluenza Virus 2 Not Detected (NOT DETECT); Parainfluenza Virus 3 Not Detected (NOT DETECT); Parainfluenza Virus 4 Not Detected (NOT DETECT); Respiratory Syncytial Virus Not Detected (NOT DETECT); SARS-Cov-2 (COVID-19), BioFire Not Detected (NOT DETECT)
[2024-07-12 16:09] VITALS: BP 146/59
--- NOTE | 2024-07-12 16:19 | NUR ---
SHIFT SUMMARY PT WOKE FOR SHIFT REPORT THIS AM. PT DROWSY/LETHARGIC AT FIRST, BUT WOKE UP SOON AFTER START OF SHIFT. PT AWAKE TO EAT BREAKFAST. DAUGHTER IN TO VISIT EARLY. PT'S MENTATION CONTINUED TO IMPROVE. DR BAL IN TO SEE PT AND DISCUSS PLAN OF CARE. PT BEING TREATED FOR PNM. PT HAS REMAINED ON 2L VIA N/C WITH BIOX AT 99-100%. PT'S BASELINE O2 IS 3L AT HOME. MEDICATED FOR C/O BACK PAIN PER EMAR. PT REQUESTED HOME MEDS ORDERED; DONE BY DR BAL. PER REPORT, PT LIVES WITH DAUGHTER AND USES FWW AT BASELINE. LUNGS T/O COARSE; GREATER IN BASES. RESTING QUIETLY WATCHING TV AT THIS TIME. DENIES FURTHER NEEDS. CALL LT IN REACH.
[2024-07-12 19:18] VITALS: BP 144/54
[2024-07-12] MEDS ORDERED: Metoprolol Succinate 50 MG TABCR PO SCH (21:00)
[2024-07-12] MEDS ORDERED: CefTRIAXone Sodium 1,000 MG in NS 100 ML IV SCH (21:00)
[2024-07-13 04:08] VITALS: BP 124/52
[2024-07-13 05:04] LABS: Hematocrit 28.5 % (33.0-51.0); Hemoglobin 8.9 g/dL (11.5-16.0); Mean Corpuscular HGB 27.3 pg (26.0-34.0); Mean Corpuscular HGB Conc 31.2 g/dL (31.5-36.5); Mean Corpuscular Volume 87 fL (80-100); Mean Platelet Volume 11.2 fL (9.1-12.4); Platelet Count 239 K/mm3 (150-400); RDW Coefficient Variation 14.2 % (11.7-14.2); Red Blood Cell Count 3.26 M/mm3 (3.80-5.20); White Blood Cell Count 10.93 K/mm3 (4.00-11.30)
--- NOTE | 2024-07-13 05:13 | NUR ---
SHIFT SUMMARY PT ALERT ORIENTED CALLS APPROPRIATELY. NO C/O CHEST PAIN BUT DOES HAVE SOME SOB AT TIMES. REMAINS ON 2 L OF O2 VIA NC. VSS ON 2 L SATTING AT 95%. REMAINS ON A PUREWICK VOIDING CLEAR YELLOW URINE. C/O BACK PAIN MEDICATED WITH BUPRENORPHRINE NEEDED WITH GOOD RELIEF. SLEPT MOST OF THE NIGHT. REMAINS ON A CONTINUOUS PULSE OX. REMAINS ON A DAILY WEIGHT. REMAINS ON DOXYCYCLINE AND ROCEPHIN ORDERED. NO COUGH OR CONGESTION THIS SHIFT. SLEEPING IN BED AT THIS TIME WITH HER CALL LIGHT IN REACH.
[2024-07-13 05:47] LABS: Calcium, Blood 8.9 mg/dL (8.5-10.1); Creatinine, Blood 1.33 mg/dL (0.40-1.00); Potassium, Blood 3.2 mmol/L (3.5-5.5)
[2024-07-13] MEDS ORDERED: Potassium Chloride 20 MEQ TabCR PO ONE (08:25)
[2024-07-13 08:31] VITALS: BP 145/54
[2024-07-13] MEDS ORDERED: Cefuroxime Axetil 250 MG Tab PO SCH (14:00)
[2024-07-13] MEDS ORDERED: Doxycycline Hyclate 100 MG TAB PO SCH (14:00)
[2024-07-13 17:29] VITALS: BP 144/57
[2024-07-13 19:35] VITALS: BP 164/61
--- NOTE | 2024-07-14 04:23 | NUR ---
SUMMARY: PT A/OX3, CALLS APPROPRIATELY TO SPECIFY NEEDS AND IS PLEASANT AND COOPERATIVE W/CARE. SHE SLEPT MAJORITY OF NOCTE AND GRADUALLY REPOSITIONS SELF IN BED. PT REMAINS CONTINENT/INCONTINENT W/ATTENDS CHANGED PRN. BUPRENORPHINE PROVIDED FOR TOLERABLE RELIEF OF CHRONIC BACK PAIN. PO ABX RECEIVED PER EMAR. CONT BIOX INTACT AND SPO2 IS WNL ON 2L O2 VIA NC. VSS/AFEBRILE AND NO ACUTE CHANGES. WCTM AND REPORT TO DAY RN.
[2024-07-14 04:29] VITALS: BP 154/60
[2024-07-14 06:15] LABS: Albumin, Blood 2.6 g/dL (3.4-5.0); Anion Gap 8 mmol/L (3-11); Blood Urea Nitrogen 12 mg/dL (8-24); Bun/Creatinine Ratio 11.1 (12.0-20.0); CO2, Blood 34 mmol/L (21-32); Calcium, Blood 9.9 mg/dL (8.5-10.1); Chloride, Blood 104 mmol/L (98-108); Creatinine, Blood 1.08 mg/dL (0.40-1.00); Glomerular Filtration Rate 56 (60-); Glucose, Blood 115 mg/dL (70-99); Magnesium, Blood 1.9 mg/dL (1.6-2.4); Phosphorus, Blood 4.1 mg/dL (2.5-4.9); Potassium, Blood 3.4 mmol/L (3.5-5.5); Sodium, Blood 143 mmol/L (136-145)
[2024-07-14 07:35] VITALS: BP 142/61
[2024-07-14] MEDS ORDERED: Potassium Chloride 20 MEQ TabCR PO ONE (07:50)
--- NOTE | 2024-07-14 09:35 | NUR ---
PT C/O OF NAUSEA, DID NOT HAVE ANY MEDICATIONS ON EMAR. THIS RN NOTIFIED MD ABOUT SITUATION AND MD SAID SHE WOULD PLACE IN AN ORDER. ALSO TOLD RT REQUESTED AN INHALER SUBSTITUTION FOR HOME MED THAT IS OUT.
[2024-07-14] MEDS ORDERED: Ondansetron 4 MG SoluTab MM PRN (09:55)
--- NOTE | 2024-07-14 12:57 | NUR ---
PT C/O SHARP PAIN IN CHEST AT SAME TIME HEART RATE DROP TO 40S AND THEN UP TO 140S. PT HEART RATE IS JUMPING FROM 80S TO 130S AND BACK, PT REPORTS PAIN NOT BAD BUT STILL THERE. DR. KELLEY NOTIFIED, PROTONIX ORDERED, NO OTHER ORDERS AT THIS TIME
[2024-07-14] MEDS ORDERED: Pantoprazole Sodium 40 MG Injection IV STA (13:15)
[2024-07-14] MEDS ORDERED: Pantoprazole Sodium 40 MG Tab PO ONE (13:45)
[2024-07-14 15:00] VITALS: BP 145/51
--- NOTE | 2024-07-14 16:57 | NUR ---
SHIFT SUMMARY PT A&OX2 TO SELF AND , DID NOT WANT TO GUESS THE DATE AND LOCATION. VERY CONFUSED, KEPT ASKING ABOUT THE BUTTONS ON HER REMOTE AFTER [employer]TS. IS BEDSIDE AND COMMUNICATES THAT THIS IS PTS BASELINE FOR A WHILE. PT HAD INCONTINENT EPISODE WHILE WORKING WITH OT, DOES NOT HAVE DELUNA. TELE RUNNING SR 64BPM. PT SEEMED TO DO WELL WITH 1 PERSON ASSIST USING GAIT BELT AND WALKER. PT IS ALITTLE IMPULSIVE, BED ALARM IS ENGAGED. BED IN LOWEST POSITION, CALL LIGHT WITHIN REACH.
--- NOTE | 2024-07-14 17:05 | NUR ---
SHIFT SUMMARY PT A&OX4, COOPERATIVE WITH PROCEDURES, ABLE TO MAKE NEEDS KNOWN. TRANSFERRING TO COMMODE VIA STAND PIVOT. EARLY SHIFT HAD NEAUSEA AND VOMITED, MEDICATED PER EMAR. APPROXIMATELY 1330, PT C/O CHEST PAIN DESCRIBED "SHARP". MD PRESCRIBED PO PROTONIX, ADMINISTERED, REASSESSED 2 HOURS LATER, PAIN WENT FROM 4/10 TO 2/10. REASSESSED AT 1630, PT REPORTS PAIN IS GONE. PT TOLERATING PO MEDS WITH APPLESAUCE. FAMILY IS BEDSIDE. BED IN LOWEST POSITION, CALL LIGHT WITHIN REACH.
[2024-07-14 19:48] VITALS: BP 134/52
[2024-07-15 03:01] VITALS: BP 138/62
--- NOTE | 2024-07-15 04:39 | NUR ---
SUMMARY: PT A/OX3-4, IS PLEASANT AND COOPERATIVE W/CARE AND SPECIFIES NEEDS WHILE STAFF IN ROOM. SHE'S 1PA W/FWW TO BSC/CHAIR AND WAS CONTINENT W/URGE INCONTINENCE T/O NOCTE. ATTENDS CHANGED PRN AND PT HAD X1 SMALL BM THIS SHIFT. SHE DIDN'T HAVE ANY ADDITIONAL NAUSEA OR ABDO DISCOMFORT AND WAS MEDICATED W/BUPRENORPHINE FOR TOLERABLE RELIEF OF CHRONIC BACK PAIN. NO ACUTE CHANGES, VSS/AFEBRILE AND PT REMAINS ON 2L O2 VIA NC W/SPO2 WNL. WCTM/REPORT TO DAY RN.
--- NOTE | 2024-07-15 04:40 | NUR ---
SUMMARY: PT A/OX3-4, IS PLEASANT AND COOPERATIVE W/CARE AND SPECIFIES NEEDS WHILE STAFF IN ROOM. SHE'S 1PA W/FWW TO BSC/CHAIR AND WAS CONTINENT W/URGE INCONTINENCE T/O NOCTE. ATTENDS CHANGED PRN AND PT HAD X1 SMALL BM THIS SHIFT. SHE DIDN'T HAVE ANY ADDITIONAL NAUSEA OR ABDO DISCOMFORT AND DENIED PAIN. NO ACUTE CHANGES, VSS/AFEBRILE AND PT REMAINS ON 2L O2 VIA NC W/SPO2 WNL. WCTM AND REPORT TO DAY RN.
[2024-07-15 05:40] LABS: Albumin, Blood 2.8 g/dL (3.4-5.0); Anion Gap 9 mmol/L (3-11); Blood Urea Nitrogen 14 mg/dL (8-24); Bun/Creatinine Ratio 12.8 (12.0-20.0); CO2, Blood 33 mmol/L (21-32); Calcium, Blood 9.8 mg/dL (8.5-10.1); Chloride, Blood 103 mmol/L (98-108); Creatinine, Blood 1.09 mg/dL (0.40-1.00); Glomerular Filtration Rate 55 (60-); Glucose, Blood 128 mg/dL (70-99); Potassium, Blood 3.6 mmol/L (3.5-5.5); Sodium, Blood 141 mmol/L (136-145)
[2024-07-15 07:31] VITALS: BP 164/64
[2024-07-15] MEDS ORDERED: CEFU500T30 PO (11:12)
[2024-07-15] MEDS ORDERED: DOXY100 PO (11:13)
[2024-07-15] MEDS ORDERED: ALBU2.5V5 INH (11:14)
[2024-07-15] MEDS ORDERED: ONDA4ODT MM (11:35)
--- NOTE | 2024-07-15 12:24 | NUR ---
PATIENT TO BE DISCAHRGED, DISCHARGED PAPER WORK READY, REPORTED TO ROSA MARTE, PATIENT AND DAUGHTER READY TO GO HOME
--- NOTE | 2024-07-15 13:39 | NUR ---
PT DISCHARGED HOME, TROY MARTE DISCUSSED DISCHARGE WITH PT AND FAMILY
== END 2024-07-15 12:42 | disposition home health service (06) | DRG 871 ==
LOC: ER 20:49 → MEDS 20:50
PROVIDERS: Family Medicine Adult Medicine; Internal Medicine; Student in an Organized Health Care Education/Training Program; ADMIT Student in an Organized Health Care Education/Training Program
DX: A41.9 Sepsis, unspecified organism (principal); G92.8 Other toxic encephalopathy; I50.33 Acute on chronic diastolic (congestive) heart failure; J18.9 Pneumonia, unspecified organism; J44.0 Chronic obstructive pulmonary disease with (acute) lower respiratory infection; I13.0 Hypertensive heart and chronic kidney disease with heart failure and stage 1 through stage 4 chronic kidney disease, or unspecified chronic kidney disease; E87.0 Hyperosmolality and hypernatremia; J96.11 Chronic respiratory failure with hypoxia; Z99.81 Dependence on supplemental oxygen; R65.20 Severe sepsis without septic shock; E87.6 Hypokalemia; I27.20 Pulmonary hypertension, unspecified; R13.12 Dysphagia, oropharyngeal phase; L89.321 Pressure ulcer of left buttock, stage 1; D63.1 Anemia in chronic kidney disease; N18.30 Chronic kidney disease, stage 3 unspecified; G89.29 Other chronic pain; M54.9 Dorsalgia, unspecified; F32.A Depression, unspecified; F41.9 Anxiety disorder, unspecified; Z90.49 Acquired absence of other specified parts of digestive tract; Z88.0 Allergy status to penicillin; Z88.1 Allergy status to other antibiotic agents; Z79.899 Other long term (current) drug therapy; Z79.82 Long term (current) use of aspirin
CPT/HCPCS: 0202U; 0241U; 36415; 51701; 70450; 71045; 71046; 80048; 80053; 80069; 81003; 82803; 83605; 83735; 83880; 84145; 84443; 84484; 85025; 85027; 92610; 93005; 93010; 94640; 94664; 94762; 96361-59; 96365-59; 96367; 97110; 97162; 97165; 97530; 97535; 99285-25; A9270; J0456; J0696; J1650; J3480; J7050; J7060

== ENCOUNTER → 2024-09-07 | Outpatient (CLI) | payer MEDICARE, OTHER ==
[~2024-09-07] MED LIST changes: +ALBU2.5V5 INH; +CEFU500T30 PO; +DOXY100 PO; +ONDA4ODT MM
[2024-09-07 12:16] LABS: BASOPHILS ABSOLUTE AUTO 0.07 K/mm3 (0.00-0.23); BASOPHILS PERCENT AUTO 1 % (0-2); EOSINOPHILS ABSOLUTE AUTO 0.42 K/mm3 (0.00-0.68); EOSINOPHILS PERCENT AUTO 5 % (0-6); Hematocrit 37.2 % (33.0-51.0); Hemoglobin 11.1 g/dL (11.5-16.0); IMMATURE GRAN ABSOLUTE AUTO 0.02 K/mm3 (0.00-0.10); IMMATURE GRAN PERCENT AUTO 0 % (0-1); LYMPHOCYTES ABSOLUTE AUTO 2.34 K/mm3 (0.84-5.20); LYMPHOCYTES PERCENT AUTO 28 % (21-46); MONOCYTES ABSOLUTE AUTO 0.78 K/mm3 (0.16-1.47); MONOCYTES PERCENT AUTO 9 % (4-13); Mean Corpuscular HGB 25.1 pg (26.0-34.0); Mean Corpuscular HGB Conc 29.8 g/dL (31.5-36.5); Mean Corpuscular Volume 84 fL (80-100); Mean Platelet Volume 11.1 fL (9.1-12.4); NEUTROPHILS ABSOLUTE AUTO 4.72 K/mm3 (1.96-9.15); NEUTROPHILS PERCENT AUTO 57 % (41-73); Platelet Count 257 K/mm3 (150-400); RDW Coefficient Variation 15.4 % (11.7-14.2); RDW Standard Deviation 47.4 fL (35.1-46.3); Red Blood Cell Count 4.42 M/mm3 (3.80-5.20); White Blood Cell Count 8.35 K/mm3 (4.00-11.30)
[2024-09-07 13:23] LABS: Albumin, Blood 3.7 g/dL (3.4-5.0); Anion Gap 11 mmol/L (3-11); Blood Urea Nitrogen 39 mg/dL (8-24); Bun/Creatinine Ratio 21.5 (12.0-20.0); CO2, Blood 35 mmol/L (21-32); Calcium, Blood 9.3 mg/dL (8.5-10.1); Chloride, Blood 95 mmol/L (98-108); Creatinine, Blood 1.81 mg/dL (0.40-1.00); Ferritin, Serum 38 ng/mL (8-252); Glomerular Filtration Rate 30 (60-); Glucose, Blood 97 mg/dL (70-99); Iron Serum 52 ug/dL (50-170); Magnesium, Blood 2.5 mg/dL (1.6-2.4); Percent Saturation 13.6 % (15.0-50.0); Potassium, Blood 4.3 mmol/L (3.5-5.5); Sodium, Blood 137 mmol/L (136-145); Total Iron Binding Capacity 383 ug/dL (250-450); Uric Acid, Blood 10.8 mg/dL (2.6-6.0)
== END ==
LOC: LAB SHORT 10:56 → LAB 10:56
PROVIDERS: Internal Medicine Nephrology
DX: I12.9 Hypertensive chronic kidney disease with stage 1 through stage 4 chronic kidney disease, or unspecified chronic kidney disease (principal); N18.32 Chronic kidney disease, stage 3b; D63.1 Anemia in chronic kidney disease; E55.9 Vitamin D deficiency, unspecified
CPT/HCPCS: 80069; 82306; 82728; 83540; 83550; 83735; 84550; 85025

== ENCOUNTER → 2024-09-10 | Outpatient (CLI) | payer MEDICARE, OTHER ==
[2024-09-10 15:00] LABS: Source, Urine Voided
[2024-09-10 16:33] LABS: Appearance, Urine Clear (Clear); Bilirubin, Urine Neg (Neg); Blood, Urine Neg (Neg); Color, Urine Yellow (P-Yellow); Glucose Qualitative, Urine 4+ (Neg); Ketones, Urine Neg (Neg); Leukocyte Esterase, Urine Neg (Neg); Nitrite, Urine Neg (Neg); Protein, Urine Neg (Neg); Specific Gravity, Urine 1.015 (1.003-1.022); Urobilinogen, Urine NORM (Normal)
[2024-09-10 17:13] LABS: Protein, Urine Random 8.2 mg/dL (0.0-11.9); Protein/Creat Ratio, Ur Random 0.1
== END ==
LOC: LAB SHORT 14:55 → LAB 14:55
PROVIDERS: Internal Medicine Nephrology
DX: N18.32 Chronic kidney disease, stage 3b (principal); I12.9 Hypertensive chronic kidney disease with stage 1 through stage 4 chronic kidney disease, or unspecified chronic kidney disease
CPT/HCPCS: 81003; 82570; 84156

== ENCOUNTER 2024-10-09 05:17 | Emergency (ER) | payer OTHER, MEDICARE ==
[~2024-10-09] VITALS: Ht 157.5 cm; Wt 61.2 kg
[2024-10-09] MEDS ORDERED: OxyCODONE HCL 5 MG TAB PO ONE (06:20)
[2024-10-09 07:45] VITALS: BP 150/75
== END 2024-10-09 08:10 | disposition home or self-care (01) ==
LOC: ER 05:17
DX: S42.022A Displaced fracture of shaft of left clavicle, initial encounter for closed fracture (principal); I13.0 Hypertensive heart and chronic kidney disease with heart failure and stage 1 through stage 4 chronic kidney disease, or unspecified chronic kidney disease; I50.30 Unspecified diastolic (congestive) heart failure; N18.30 Chronic kidney disease, stage 3 unspecified; J44.9 Chronic obstructive pulmonary disease, unspecified; I25.2 Old myocardial infarction; W01.0XXA Fall on same level from slipping, tripping and stumbling without subsequent striking against object, initial encounter; Z79.82 Long term (current) use of aspirin; Z79.899 Other long term (current) drug therapy; Z88.0 Allergy status to penicillin; Z88.1 Allergy status to other antibiotic agents
CPT/HCPCS: 73030; 99283-25; A9270

== ENCOUNTER → 2025-07-15 | Outpatient (CLI) | payer MEDICARE, OTHER | LOC: LAB 18:09 → LAB SHORT 18:09 | DX: R82.90 Unspecified abnormal findings in urine (principal) | CPT/HCPCS: 87077; 87086; 87147; 87186 ==